=== PATIENT | female | born 1945 | race Caucasian/White ===

== ENCOUNTER 2018-03-23 15:25 | Emergency (ER) | payer MEDICARE ==
[2018-03-23] MEDS ORDERED: SODIUM CHLORIDE 0.9% 1,000 ML IV STA (16:23)
--- NOTE | 2018-03-23 16:46 | ED ---
General Adult HPI - General Chief complaint: Abdominal Pain Stated complaint: Abd pain Time Seen by Provider: 03/23/18 15:59 Source: patient, RN notes reviewed Mode of arrival: ambulatory Limitations: no limitations - History of Present Illness Initial comments: 73-year-old female presents to the emergency department for a chief complaint of abdominal pain 6 hours. Patient states she has had pain on and off for years. Patient states the pain was severe today. However, pain has resolved at the time of the emergency department visit. Patient denies vomiting but states she was nauseous earlier. Nausea resolved. Patient states she has a history of hiatal hernia but wants to make sure nothing else is wrong. Patient states she has had multiple endoscopies for this. Patient denies fevers or chills at home. Patient denies diarrhea and states her last bowel movement was today. Patient denies any cardiac history.Patient has no other complaints at this time including shortness of breath, chest pain, abdominal pain, nausea or vomiting, headache, or visual changes. - Related Data Allergies Allergy/AdvReac Type Severity Reaction Status Date / Time ciprofloxacin [From Cipro] Allergy Unknown Verified 03/23/18 15:48 Review of Systems ROS Statement: Those systems with pertinent positive or pertinent negative responses have been documented in the HPI. ROS Other: All systems not noted in ROS Statement are negative. Past Medical History Past Medical History: Thyroid Disorder Additional Past Medical History / Comment(s): IBS History of Any Multi-Drug Resistant Organisms: None Reported Past Surgical History: Hysterectomy Past Psychological History: Anxiety Smoking Status: Never smoker Past Alcohol Use History: None Reported Past Drug Use History: None Reported General Exam Limitations: no limitations General appearance: alert, in no apparent distress Head exam: Present: atraumatic, normocephalic, normal inspection Eye exam: Present: normal appearance. Absent: scleral icterus, conjunctival injection ENT exam: Present: normal exam, mucous membranes moist Neck exam: Present: normal inspection, full ROM. Absent: tenderness, meningismus, lymphadenopathy Respiratory exam: Present: normal lung sounds bilaterally. Absent: respiratory distress, wheezes, rales, rhonchi, stridor Cardiovascular Exam: Present: regular rate, normal rhythm, normal heart sounds. Absent: systolic murmur, diastolic murmur, rubs, gallop, clicks GI/Abdominal exam: Present: soft, tenderness (epigastric tenderness, LUQ tenderness, no tenderness elsewhere in the abdomen.), normal bowel sounds. Absent: distended, guarding, rebound, rigid, other (Negative McBurney point tenderness, negative obturator or psoas signs) Neurological exam: Present: alert, oriented X3, CN II-XII intact Psychiatric exam: Present: normal affect, normal mood Skin exam: Present: warm, dry, intact, normal color. Absent: rash Course Vital Signs 03/23/18 15:45 Temperature 98.2 F Pulse Rate 103 H Respiratory 18 Rate Blood Pressure 148/80 O2 Sat by Pulse 99 Oximetry EKG Findings - EKG Comments: EKG Findings:: EKG shows normal sinus rhythm ventricular rate 72 [place] interval 166 QRS duration [address] elevation or depression Medical Decision Making - Medical Decision Making 73-year-old female presents to the emergency department for epigastric and left upper and lower quadrant pain 6 hours. Patient does have a history of hiatal hernia that would like to make sure nothing else is going on. Pain resolved in the emergency Department. Patient states she has had similar episodes of pain multiple times over the past few years. Patient denies shortness of breath or chest pain. Patient is tender in the epigastric and left upper quadrant area on exam. No other abdominal tenderness. CBC CMP unremarkable. Urine will be cultured. CT of the abdomen shows hiatal hernia. Otherwise negative exam. Pain has completely resolved in the emergency department. Patient is already on medications for the hiatal hernia and sees Dr. Diggs regularly. she will follow up with Dr. Wu and primary care in 1-2 days. Patient aware to return to the emergency Department if she has any worsening symptoms. - Lab Data Result diagrams: 03/23/18 16:30 03/23/18 16:30 Lab Results 03/23/18 03/23/18 03/23/18 Range/Units 16:30 16:30 16:30 WBC 7.8 (3.8-10.6) k/uL RBC 4.47 (3.80-5.40) m/uL Hgb 13.2 (11.4-16.0) gm/dL Hct 39.6 (34.0-46.0) % MCV 88.5 (80.0-100.0) fL MCH 29.4 (25.0-35.0) pg MCHC 33.2 (31.0-37.0) g/dL RDW 13.0 (11.5-15.5) % Plt Count 308 (150-450) k/uL Neutrophils % 80 % Lymphocytes % 14 % Monocytes % 4 % Eosinophils % 1 % Basophils % 0 % Neutrophils # 6.2 (1.3-7.7) k/uL Lymphocytes # 1.1 (1.0-4.8) k/uL Monocytes # 0.3 (0-1.0) k/uL Eosinophils # 0.0 (0-0.7) k/uL Basophils # 0.0 (0-0.2) k/uL Sodium 138 (137-145) mmol/L Potassium 3.9 (3.5-5.1) mmol/L Chloride 100 (98-107) mmol/L Carbon Dioxide 27 (22-30) mmol/L Anion Gap 11 mmol/L BUN 15 (7-17) mg/dL Creatinine 0.78 (0.52-1.04) mg/dL Est GFR (CKD-EPI)AfAm 89 (>60 ml/min/1.73 sqM) Est GFR (CKD-EPI)NonAf 77 (>60 ml/min/1.73 sqM) Glucose 149 H (74-99) mg/dL Calcium 9.5 (8.4-10.2) mg/dL Total Bilirubin 0.5 (0.2-1.3) mg/dL AST 18 (14-36) U/L ALT 25 (9-52) U/L Alkaline Phosphatase 82 (38-126) U/L Total Protein 7.2 (6.3-8.2) g/dL Albumin 4.4 (3.5-5.0) g/dL Amylase 90 (30-110) U/L Lipase 77 (23-300) U/L Urine Color Yellow Urine Appearance Clear (Clear) Urine pH 5.5 (5.0-8.0) Ur Specific [place] 1.016 (1.001-1.035) Urine Protein Trace H (Negative) Urine Glucose (UA) Negative (Negative) Urine Ketones 1+ H (Negative) Urine Blood Trace H (Negative) Urine Nitrite Negative (Negative) Urine Bilirubin Negative (Negative) Urine Urobilinogen <2.0 (<2.0) mg/dL Ur Leukocyte Esterase Small H (Negative) Urine RBC 3 (0-5) /hpf Urine WBC 5 (0-5) /hpf Ur Squamous Epith Cells 1 (0-4) /hpf Urine Bacteria Rare H (None) /hpf Urine Mucus Occasional H (None) /hpf Disposition Clinical Impression: Abdominal pain, Hiatal hernia Disposition: HOME SELF-CARE Condition: Good Instructions: Hiatal Hernia (ED), Abdominal Pain (ED) Additional Instructions: Please follow up with Dr. Wu and your primary care provider in one to 2 days. Please continue to take your medications for your hernia. Return to the ED if you have any worsening symptoms. Is patient prescribed a controlled substance at d/c from ED?: No Referrals: Abdulkadir Harris MD [Primary Care Provider] - 1-2 days Time of Disposition: 18:24
[2018-03-23 16:50] LABS: Appearance,Urine Clear (Clear); Bacteria,Urine Rare /hpf; Basophils % (A) 0 %; Bilirubin,Urine Negative (Negative); Blood,Urine Trace (Negative); Color,Urine Yellow; Eosinophils % (A) 1 %; Glucose,Urine (UA) Negative (Negative); HCT 39.6 % (34.0-46.0); HGB 13.2 gm/dL (11.4-16.0); Ketones,Urine 1+ (Negative); Leukocyte Esterase,Urine Small (Negative); Lymphocytes # (A) 1.1 k/uL (1.0-4.8); Lymphocytes % (A) 14 %; MCH 29.4 pg (25.0-35.0); MCHC 33.2 g/dL (31.0-37.0); MCV 88.5 fL (80.0-100.0); Mean Platelet Volume 6.6; Monocytes # (A) 0.3 k/uL (0-1.0); Monocytes % (A) 4 %; Mucus,Urine Occasional /hpf; Neutrophils # (A) 6.2 k/uL (1.3-7.7); Neutrophils % (A) 80 %; Nitrite,Urine Negative (Negative); PH, Urine 5.5 (5.0-8.0); Platelet Count 308 k/uL (150-450); Protein,Urine Trace (Negative); RBC 4.47 m/uL (3.80-5.40); RBC,Urine 3 /hpf (0-5); Specific Gravity,Urine 1.016 (1.001-1.035); Squamous Epithelial Cell,Urine 1 /hpf (0-4); Urobilinogen,Urine <2.0 mg/dL (<2.0); WBC 7.8 k/uL (3.8-10.6); WBC,Urine 5 /hpf (0-5)
[2018-03-23 16:58] LABS: Albumin 4.4 g/dL (3.5-5.0); Calcium 9.5 mg/dL (8.4-10.2); Potassium 3.9 mmol/L (3.5-5.1); Total Bilirubin 0.5 mg/dL (0.2-1.3); Total Protein 7.2 g/dL (6.3-8.2)
--- NOTE | 2018-03-23 17:56 | CT ---
EXAMINATION TYPE: CT abdomen pelvis w con DATE OF EXAM: 03/23/2018 COMPARISON: None HISTORY: Left lower quadrant abdominal pain and nausea. CT DLP: 681 mGycm Automated exposure control for dose reduction was used. TECHNIQUE: Helical acquisition of images was performed from the lung bases through the pelvis. CONTRAST: Performed without Oral Contrast and with IV Contrast, patient injected with 100ml mL of Isovue M300. FINDINGS: There is some mild linear interstitial density at the right lung base. There is hiatal hernia. There is no pleural effusion. Liver spleen pancreas appear normal. Bile ducts are not dilated. Gallbladder appears normal. There is no adrenal mass. Kidneys show satisfactory contrast opacification. There is no hydronephrosi s. Ureters are not dilated. There is no retroperitoneal adenopathy. There is no ascites. Bladder dist ends smoothly. There is no sign of free air. Appendix is not seen. There is no sign of appendicitis. There is hysterectomy. The bony structures are intact. There is no abdominal wall hernia. IMPRESSION: HIATAL HERNIA. OTHERWISE NEGATIVE EXAM. I DO NOT SEE A CAUSE FOR LEFT LOWER QUADRANT PAIN.
[2018-03-23 19:22] VITALS: BP 162/79; PULSE 77; RESP 16; TEMP 98.4
== END 2018-03-23 19:22 | disposition home or self-care (01) ==
LOC: EC 15:25
DX: K44.9 Diaphragmatic hernia without obstruction or gangrene (principal); Z90.710 Acquired absence of both cervix and uterus; Z88.1 Allergy status to other antibiotic agents
CPT/HCPCS: 99284; 96360; 36415; 93005; 80053; 82150; 83690; 85025; 81001; 87086; 74177; Q9967

== ENCOUNTER 2018-04-12 15:43 | Emergency (ER) | payer MEDICARE ==
[2018-04-12] MEDS ORDERED: SODIUM CHLORIDE 0.9% 1,000 ML IV STA (16:02)
[2018-04-12] MEDS ORDERED: ONDANSETRON 4 MG/2 ML VIAL IVP STA (16:02)
[2018-04-12] MEDS ORDERED: SODIUM CHLORIDE 0.9% 500 ML IV STA (16:02)
[2018-04-12] MEDS ORDERED: PANTOPRAZOLE 40 MG/10 ML VIAL IVP STA (16:02)
[2018-04-12] MEDS ORDERED: MORPHINE SULFATE 2 MG/ML SYRINGE IVP STA (16:02)
[2018-04-12 16:40] LABS: Appearance,Urine Cloudy (Clear); Bacteria,Urine Rare /hpf; Bilirubin,Urine Negative (Negative); Blood,Urine Negative (Negative); Budding Yeast,Urine Few /hpf; Color,Urine Yellow; Glucose,Urine (UA) Negative (Negative); Ketones,Urine 1+ (Negative); Leukocyte Esterase,Urine Negative (Negative); Mucus,Urine Rare /hpf; Nitrite,Urine Negative (Negative); Protein,Urine Trace (Negative); RBC,Urine 4 /hpf (0-5); Specific Gravity,Urine 1.014 (1.001-1.035); Urobilinogen,Urine <2.0 mg/dL (<2.0)
[2018-04-12 16:45] LABS: Partial Thromboplastin Time 25.7 sec (22.0-30.0); Prothrombin Time 9.9 sec (9.0-12.0)
[2018-04-12 16:48] LABS: ALT 25 U/L (9-52); AST 24 U/L (14-36); Albumin 4.5 g/dL (3.5-5.0); Alkaline Phosphatase 95 U/L (38-126); Amylase 75 U/L (30-110); Anion Gap 8 mmol/L; Blood Urea Nitrogen 12 mg/dL (7-17); Calcium 9.7 mg/dL (8.4-10.2); Carbon Dioxide 27 mmol/L (22-30); Chloride 102 mmol/L (98-107); Glucose 107 mg/dL (74-99); Lipase 45 U/L (23-300); Potassium 4.2 mmol/L (3.5-5.1); Sodium 137 mmol/L (137-145); Total Bilirubin 0.6 mg/dL (0.2-1.3); Total Protein 7.7 g/dL (6.3-8.2)
--- NOTE | 2018-04-12 16:50 | XR ---
EXAMINATION TYPE: XR KUB 2 views DATE OF EXAM: 04/12/2018 COMPARISON: NONE HISTORY: Pain, left-sided, today TECHNIQUE: 2 upright radiographs FINDINGS: The visualized lower chest shows clear lungs and negative pleural spaces. There is intrathoracic posi tion of the gastric fundus. There is no pneumoperitoneum. No pneumatosis. Mildly prominent pancolonic stool volume is noted. No acute skeletal or soft tissue findings No calcifications, other than tiny bilateral hemipelvic phleboliths. IMPRESSION: No acute radiographic process.
[2018-04-12 16:53] LABS: Basophils % (A) 0 %; Eosinophils # (A) 0.1 k/uL (0-0.7); Eosinophils % (A) 1 %; HCT 41.3 % (34.0-46.0); HGB 13.3 gm/dL (11.4-16.0); Lymphocytes # (A) 1.4 k/uL (1.0-4.8); Lymphocytes % (A) 13 %; MCH 29.3 pg (25.0-35.0); MCHC 32.3 g/dL (31.0-37.0); MCV 90.5 fL (80.0-100.0); Mean Platelet Volume 6.7; Monocytes # (A) 0.3 k/uL (0-1.0); Monocytes % (A) 3 %; Neutrophils # (A) 8.4 k/uL (1.3-7.7); Neutrophils % (A) 82 %; Platelet Count 313 k/uL (150-450); RBC 4.56 m/uL (3.80-5.40); RDW 13.2 % (11.5-15.5); WBC 10.2 k/uL (3.8-10.6)
--- NOTE | 2018-04-12 18:31 | ED ---
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 - Related Data Home Medications Medication Instructions Recorded Confirmed Levothyroxine Sodium [Levoxyl] 75 mcg PO DAILY 04/12/18 04/12/18 Allergies Allergy/AdvReac Type Severity Reaction Status Date / Time ciprofloxacin [From Cipro] Allergy Unknown Verified 04/12/18 15:54 sulfamethoxazole Allergy Unknown Verified 04/12/18 15:54 [From Bactrim] trimethoprim [From Bactrim] Allergy Unknown Verified 04/12/18 15:54 Review of Systems ROS Statement: Those systems with pertinent positive or pertinent negative responses have been documented in the HPI. ROS Other: All systems not noted in ROS Statement are negative. Past Medical History Past Medical History: Thyroid Disorder Additional Past Medical History / Comment(s): IBS History of Any Multi-Drug Resistant Organisms: None Reported Past Surgical History: Hysterectomy Past Psychological History: Anxiety Smoking Status: Former smoker Past Alcohol Use History: None Reported Past Drug Use History: None Reported General Exam Limitations: no limitations Course Vital Signs 04/12/18 04/12/18 04/12/18 15:45 17:24 19:37 Temperature 98.2 F 98.0 F Pulse Rate 102 H 91 88 Respiratory 20 18 16 Rate Blood Pressure 168/99 179/81 176/82 O2 Sat by Pulse 99 98 98 Oximetry Is reassessed at 1845 CT abdomen, CBC, comp his metabolic panel, UA are all unremarkable she is complaining about upper quadrant pain it gets worse with deep breaths I plan to do a troponin, d-dimer to make sure there is no pulmonary embolism EKG was reviewed, troponin, d-dimer are all negative she be gone home on PPIs and follow with the family doctor - Reevaluation(s) Reevaluation #1: Since her troponin is unremarkable surgery d-dimer I'm EKG was done EKG is normal sinus ventricular rate is 88 [place] interval is 192 QRS duration is 64 QT/ QTc is 360/550 CK G does not reveal any ST elevation or ST depression 04/12/18 19:41 Medical Decision Making - Lab Data Result diagrams: 04/12/18 16:12 04/12/18 16:12 Lab Results 04/12/18 04/12/18 04/12/18 Range/Units 16:12 16:12 16:12 WBC 10.2 (3.8-10.6) k/uL RBC 4.56 (3.80-5.40) m/uL Hgb 13.3 (11.4-16.0) gm/dL Hct 41.3 (34.0-46.0) % MCV 90.5 (80.0-100.0) fL MCH 29.3 (25.0-35.0) pg MCHC 32.3 (31.0-37.0) g/dL RDW 13.2 (11.5-15.5) % Plt Count 313 (150-450) k/uL Neutrophils % 82 % Lymphocytes % 13 % Monocytes % 3 % Eosinophils % 1 % Basophils % 0 % Neutrophils # 8.4 H (1.3-7.7) k/uL Lymphocytes # 1.4 (1.0-4.8) k/uL Monocytes # 0.3 (0-1.0) k/uL Eosinophils # 0.1 (0-0.7) k/uL Basophils # 0.0 (0-0.2) k/uL PT (9.0-12.0) sec INR (<1.2) APTT (22.0-30.0) sec D-Dimer (<0.60) mg/L FEU Sodium 137 (137-145) mmol/L Potassium 4.2 (3.5-5.1) mmol/L Chloride 102 (98-107) mmol/L Carbon Dioxide 27 (22-30) mmol/L Anion Gap 8 mmol/L BUN 12 (7-17) mg/dL Creatinine 0.70 (0.52-1.04) mg/dL Est GFR (CKD-EPI)AfAm >90 (>60 ml/min/1.73 sqM) Est GFR (CKD-EPI)NonAf 87 (>60 ml/min/1.73 sqM) Glucose 107 H (74-99) mg/dL Plasma Lactic Acid Randal 1.1 (0.7-2.0) mmol/L Calcium 9.7 (8.4-10.2) mg/dL Total Bilirubin 0.6 (0.2-1.3) mg/dL AST 24 (14-36) U/L ALT 25 (9-52) U/L Alkaline Phosphatase 95 (38-126) U/L Troponin I (0.000-0.034) ng/mL Total Protein 7.7 (6.3-8.2) g/dL Albumin 4.5 (3.5-5.0) g/dL Amylase 75 (30-110) U/L Lipase 45 (23-300) U/L Urine Color Urine Appearance (Clear) Urine pH (5.0-8.0) Ur Specific [place] (1.001-1.035) Urine Protein (Negative) Urine Glucose (UA) (Negative) Urine Ketones (Negative) Urine Blood (Negative) Urine Nitrite (Negative) Urine Bilirubin (Negative) Urine Urobilinogen (<2.0) mg/dL Ur Leukocyte Esterase (Negative) Urine RBC (0-5) /hpf Urine Bacteria (None) /hpf Urine Mucus (None) /hpf Urine Yeast (Budding) (None) /hpf 04/12/18 04/12/18 04/12/18 Range/Units 16:12 16:12 16:12 WBC (3.8-10.6) k/uL RBC (3.80-5.40) m/uL Hgb (11.4-16.0) gm/dL Hct (34.0-46.0) % MCV (80.0-100.0) fL MCH (25.0-35.0) pg MCHC (31.0-37.0) g/dL RDW (11.5-15.5) % Plt Count (150-450) k/uL Neutrophils % % Lymphocytes % % Monocytes % % Eosinophils % % Basophils % % Neutrophils # (1.3-7.7) k/uL Lymphocytes # (1.0-4.8) k/uL Monocytes # (0-1.0) k/uL Eosinophils # (0-0.7) k/uL Basophils # (0-0.2) k/uL PT 9.9 (9.0-12.0) sec INR 1.0 (<1.2) APTT 25.7 (22.0-30.0) sec D-Dimer 0.29 (<0.60) mg/L FEU Sodium (137-145) mmol/L Potassium (3.5-5.1) mmol/L Chloride (98-107) mmol/L Carbon Dioxide (22-30) mmol/L Anion Gap mmol/L BUN (7-17) mg/dL Creatinine (0.52-1.04) mg/dL Est GFR (CKD-EPI)AfAm (>60 ml/min/1.73 sqM) Est GFR (CKD-EPI)NonAf (>60 ml/min/1.73 sqM) Glucose (74-99) mg/dL Plasma Lactic Acid Randal (0.7-2.0) mmol/L Calcium (8.4-10.2) mg/dL Total Bilirubin (0.2-1.3) mg/dL AST (14-36) U/L ALT (9-52) U/L Alkaline Phosphatase (38-126) U/L Troponin I <0.012 (0.000-0.034) ng/mL Total Protein (6.3-8.2) g/dL Albumin (3.5-5.0) g/dL Amylase (30-110) U/L Lipase (23-300) U/L Urine Color Urine Appearance (Clear) Urine pH (5.0-8.0) Ur Specific [place] (1.001-1.035) Urine Protein (Negative) Urine Glucose (UA) (Negative) Urine Ketones (Negative) Urine Blood (Negative) Urine Nitrite (Negative) Urine Bilirubin (Negative) Urine Urobilinogen (<2.0) mg/dL Ur Leukocyte Esterase (Negative) Urine RBC (0-5) /hpf Urine Bacteria (None) /hpf Urine Mucus (None) /hpf Urine Yeast (Budding) (None) /hpf 04/12/18 Range/Units 16:24 WBC (3.8-10.6) k/uL RBC (3.80-5.40) m/uL Hgb (11.4-16.0) gm/dL Hct (34.0-46.0) % MCV (80.0-100.0) fL MCH (25.0-35.0) pg MCHC (31.0-37.0) g/dL RDW (11.5-15.5) % Plt Count (150-450) k/uL Neutrophils % % Lymphocytes % % Monocytes % % Eosinophils % % Basophils % % Neutrophils # (1.3-7.7) k/uL Lymphocytes # (1.0-4.8) k/uL Monocytes # (0-1.0) k/uL Eosinophils # (0-0.7) k/uL Basophils # (0-0.2) k/uL PT (9.0-12.0) sec INR (<1.2) APTT (22.0-30.0) sec D-Dimer (<0.60) mg/L FEU Sodium (137-145) mmol/L Potassium (3.5-5.1) mmol/L Chloride (98-107) mmol/L Carbon Dioxide (22-30) mmol/L Anion Gap mmol/L BUN (7-17) mg/dL Creatinine (0.52-1.04) mg/dL Est GFR (CKD-EPI)AfAm (>60 ml/min/1.73 sqM) Est GFR (CKD-EPI)NonAf (>60 ml/min/1.73 sqM) Glucose (74-99) mg/dL Plasma Lactic Acid Randal (0.7-2.0) mmol/L Calcium (8.4-10.2) mg/dL Total Bilirubin (0.2-1.3) mg/dL AST (14-36) U/L ALT (9-52) U/L Alkaline Phosphatase (38-126) U/L Troponin I (0.000-0.034) ng/mL Total Protein (6.3-8.2) g/dL Albumin (3.5-5.0) g/dL Amylase (30-110) U/L Lipase (23-300) U/L Urine Color Yellow Urine Appearance Cloudy H (Clear) Urine pH 8.0 (5.0-8.0) Ur Specific [place] 1.014 (1.001-1.035) Urine Protein Trace H (Negative) Urine Glucose (UA) Negative (Negative) Urine Ketones 1+ H (Negative) Urine Blood Negative (Negative) Urine Nitrite Negative (Negative) Urine Bilirubin Negative (Negative) Urine Urobilinogen <2.0 (<2.0) mg/dL Ur Leukocyte Esterase Negative (Negative) Urine RBC 4 (0-5) /hpf Urine Bacteria Rare H (None) /hpf Urine Mucus Rare H (None) /hpf Urine Yeast (Budding) Few H (None) /hpf Disposition Clinical Impression: Abdominal pain Disposition: HOME SELF-CARE Condition: Good Instructions: Abdominal Pain (ED) Additional Instructions: Rice Prilosec twice a day for 7 days then change it once a day she is advised follow-up with the Dr. Wu for possible EGD Is patient prescribed a controlled substance at d/c from ED?: No Referrals: Abdulkadir Harris MD [Primary Care Provider] - 1-2 days Tessa Diggs MD [STAFF PHYSICIAN] - 1-2 days
--- NOTE | 2018-04-12 18:38 | CT ---
EXAMINATION TYPE: CT abdomen pelvis w con DATE OF EXAM: 04/12/2018 COMPARISON: 03/23/2018 HISTORY: Mid to left upper abdominal pain. CT DLP: 820 mGycm Automated exposure control for dose reduction was used. TECHNIQUE: Helical acquisition of images was performed from the lung bases through the pelvis. CONTRAST: Performed without Oral Contrast and with IV Contrast, patient injected with 100 mL of Isovue M300. FINDINGS: LUNG BASES: No significant abnormality is appreciated. LIVER/GB: No significant abnormality is appreciated. PANCREAS: No significant abnormality is seen. SPLEEN: No significant abnormality is seen. ADRENALS: No significant abnormality is seen. KIDNEYS: No significant abnormality is seen. FREE AIR: No free air is visualized. RETROPERITONEAL ADENOPATHY: None visualized REPRODUCTIVE ORGANS: No significant abnormality is seen URINARY BLADDER/URETERS: No significant abnormality is seen. Stable appearance. PELVIC ADENOPATHY: None visualized. OSSEOUS STRUCTURES: No significant abnormality is seen. BOWEL: There is intrathoracic positioning of the proximal third of the stomach. The hollow viscera o f the abdomen and pelvis are otherwise unremarkable. OTHER: Vasculature is unremarkable. IMPRESSION: NO ACUTE PROCESS; STABLE APPEARANCE WHEN COMPARED TO THE PRIOR CT 03/23/2018.
[2018-04-12 19:41] VITALS: BP 176/82; PULSE 88; RESP 16; TEMP 98
[2018-04-12] MEDS ORDERED: MAG HYDROX/AL HYDROX/SIMETH 30 ML, HYOSCYAMINE ELIXIR 10 ML, CIMETIDINE HCL 300 MG, LID... PO STA ×4 (19:55)
== END 2018-04-12 20:21 | disposition home or self-care (01) ==
LOC: EC 15:43
DX: R10.13 Epigastric pain (principal); R10.12 Left upper quadrant pain; K58.9 Irritable bowel syndrome, unspecified; Z87.891 Personal history of nicotine dependence; Z79.899 Other long term (current) drug therapy; Z88.1 Allergy status to other antibiotic agents; Z88.2 Allergy status to sulfonamides; Z87.19 Personal history of other diseases of the digestive system
CPT/HCPCS: 99284; 96374; 96375 ×2; 96361 ×4; 36415; 93005; 85379; 80053; 82150; 83605; 83690; 84484; 85025; 85610; 85730; 81001; 74018; 74177; J2405; J2270; C9113; Q9967

== ENCOUNTER 2018-06-07 20:50 | Emergency (ER) | payer MEDICARE ==
[2018-06-07] MEDS ORDERED: SODIUM CHLORIDE 0.9% 500 ML 500 ML IV STA (21:41)
[2018-06-07] MEDS ORDERED: MAG HYDROX/AL HYDROX/SIMETH 30 ML, HYOSCYAMINE ELIXIR 10 ML, CIMETIDINE HCL 300 MG, LID... PO STA ×4 (21:41)
--- NOTE | 2018-06-07 21:45 | ED ---
Abdominal Pain HPI - General Chief Complaint: Abdominal Pain Stated Complaint: Stomach pain Time Seen by Provider: 06/07/18 21:29 Source: patient Mode of arrival: ambulatory Limitations: no limitations - History of Present Illness Initial Comments: This patient is 73-year-old woman who complains of having intermittent abdominal pains. She states that they've been going on intermittently since October or November of this year. She states she gets the symptoms about every 3 or 4 days. She indicates the epigastric area and states that there sharp in nature. Today's episode came on and this morning, after she had eaten. She states that the pain is severe and she has not found any worsening or relieving factors. When the pain comes on she feels like she can't eat anything. She also has some associated nausea. She has been seen here twice previously about the same pains and states that they couldn't find the cause. MD Complaint: abdominal pain Onset/Timin -: month(s) Location: epigastric Radiation: none Migration to: no migration Severity: severe Quality: sharp Consistency: intermittent Improves With: nothing Worsens With: eating Associated Symptoms: nausea - Related Data Home Medications Medication Instructions Recorded Confirmed Acetaminophen [Tylenol] 500 mg PO Q4-6H PRN 06/07/18 06/07/18 Cholecalciferol [Vitamin D3] 1,000 unit PO DAILY 06/07/18 06/07/18 Fluticasone Nasal [place] [Flonase 1 spray EA NOSTRIL DAILY PRN 06/07/18 06/07/18 Nasal [place]] Levothyroxine Sodium [Levoxyl] 75 mcg PO MOTUWETHFRSA 06/07/18 06/07/18 Loratadine [Claritin] 10 mg PO DAILY 06/07/18 06/07/18 Naproxen Sodium [Aleve] 220 mg PO Q12HR PRN 06/07/18 06/07/18 Omeprazole [PriLOSEC] 20 mg PO DAILY 06/07/18 06/07/18 Vitamin C/Biotin [Hair, Skin and 1 tab PO DAILY 06/07/18 06/07/18 Nails] Vitavision 1 tab PO DAILY 06/07/18 06/07/18 Allergies Allergy/AdvReac Type Severity Reaction Status Date / Time ciprofloxacin [From Cipro] Allergy Unknown Verified 06/07/18 21:49 sulfamethoxazole Allergy Unknown Verified 06/07/18 21:49 [From Bactrim] trimethoprim [From Bactrim] Allergy Unknown Verified 06/07/18 21:49 Review of Systems ROS Statement: Those systems with pertinent positive or pertinent negative responses have been documented in the HPI. ROS Other: All systems not noted in ROS Statement are negative. Constitutional: Denies: fever, chills Respiratory: Denies: cough, dyspnea Cardiovascular: Denies: chest pain, palpitations, edema Gastrointestinal: Reports: as per HPI, abdominal pain, nausea, constipation. Denies: vomiting, diarrhea, melena, hematochezia Genitourinary: Denies: dysuria, hematuria Musculoskeletal: Denies: back pain Skin: Denies: rash Neurological: Denies: headache, weakness, numbness Past Medical History Past Medical History: Thyroid Disorder Additional Past Medical History / Comment(s): IBS History of Any Multi-Drug Resistant Organisms: None Reported Past Surgical History: Hysterectomy Past Psychological History: Anxiety Smoking Status: Former smoker Past Alcohol Use History: None Reported Past Drug Use History: None Reported General Exam Limitations: no limitations General appearance: alert, in no apparent distress Head exam: Present: atraumatic, normocephalic Eye exam: Present: normal appearance. Absent: scleral icterus, conjunctival injection ENT exam: Present: normal oropharynx Neck exam: Present: normal inspection Respiratory exam: Present: normal lung sounds bilaterally. Absent: respiratory distress, wheezes, rales, rhonchi, stridor Cardiovascular Exam: Present: regular rate, normal rhythm, normal heart sounds. Absent: systolic murmur, diastolic murmur, rubs, gallop GI/Abdominal exam: Present: soft, tenderness (There is mild epigastric tenderness without rebound or guarding), normal bowel sounds. Absent: distended , guarding, rebound, rigid, organomegaly, mass, pulsatile mass, hernia Extremities exam: Present: normal inspection, normal capillary refill. Absent: pedal edema, calf tenderness Back exam: Present: normal inspection. Absent: CVA tenderness (R), CVA tenderness (L) Neurological exam: Present: alert Skin exam: Present: warm, dry, intact, normal color. Absent: rash Course Vital Signs 06/07/18 20:59 Temperature 98.5 F Pulse Rate 104 H Respiratory 16 Rate Blood Pressure 163/99 O2 Sat by Pulse 99 Oximetry Medical Decision Making - Lab Data Result diagrams: 06/07/18 21:50 06/07/18 21:50 Lab Results 06/07/18 06/07/18 06/07/18 Range/Units 21:50 21:50 21:50 WBC 10.2 (3.8-10.6) k/uL RBC 4.68 (3.80-5.40) m/uL Hgb 14.4 (11.4-16.0) gm/dL Hct 42.6 (34.0-46.0) % MCV 91.2 (80.0-100.0) fL MCH 30.9 (25.0-35.0) pg MCHC 33.9 (31.0-37.0) g/dL RDW 13.0 (11.5-15.5) % Plt Count 301 (150-450) k/uL Neutrophils % 77 % Lymphocytes % 16 % Monocytes % 4 % Eosinophils % 1 % Basophils % 0 % Neutrophils # 7.8 H (1.3-7.7) k/uL Lymphocytes # 1.7 (1.0-4.8) k/uL Monocytes # 0.4 (0-1.0) k/uL Eosinophils # 0.1 (0-0.7) k/uL Basophils # 0.1 (0-0.2) k/uL Sodium 137 (137-145) mmol/L Potassium 3.9 (3.5-5.1) mmol/L Chloride 97 L (98-107) mmol/L Carbon Dioxide 29 (22-30) mmol/L Anion Gap 11 mmol/L BUN 17 (7-17) mg/dL Creatinine 0.74 (0.52-1.04) mg/dL Est GFR (CKD-EPI)AfAm >90 (>60 ml/min/1.73 sqM) Est GFR (CKD-EPI)NonAf 82 (>60 ml/min/1.73 sqM) Glucose 104 H (74-99) mg/dL Plasma Lactic Acid [place] 1.5 (0.7-2.0) mmol/L Calcium 10.0 (8.4-10.2) mg/dL Total Bilirubin 0.6 (0.2-1.3) mg/dL AST 23 (14-36) U/L ALT 25 (9-52) U/L Alkaline Phosphatase 92 (38-126) U/L Troponin I (0.000-0.034) ng/mL Total Protein 8.2 (6.3-8.2) g/dL Albumin 4.6 (3.5-5.0) g/dL Amylase 82 (30-110) U/L Lipase 69 (23-300) U/L Urine Color Urine Appearance (Clear) Urine pH (5.0-8.0) Ur Specific [place] (1.001-1.035) Urine Protein (Negative) Urine Glucose (UA) (Negative) Urine Ketones (Negative) Urine Blood (Negative) Urine Nitrite (Negative) Urine Bilirubin (Negative) Urine Urobilinogen (<2.0) mg/dL Ur Leukocyte Esterase (Negative) Urine RBC (0-5) /hpf Urine WBC (0-5) /hpf Ur Squamous Epith Cells (0-4) /hpf Urine Mucus (None) /hpf 06/07/18 06/07/18 Range/Units 21:50 23:21 WBC (3.8-10.6) k/uL RBC (3.80-5.40) m/uL Hgb (11.4-16.0) gm/dL Hct (34.0-46.0) % MCV (80.0-100.0) fL MCH (25.0-35.0) pg MCHC (31.0-37.0) g/dL RDW (11.5-15.5) % Plt Count (150-450) k/uL Neutrophils % % Lymphocytes % % Monocytes % % Eosinophils % % Basophils % % Neutrophils # (1.3-7.7) k/uL Lymphocytes # (1.0-4.8) k/uL Monocytes # (0-1.0) k/uL Eosinophils # (0-0.7) k/uL Basophils # (0-0.2) k/uL Sodium (137-145) mmol/L Potassium (3.5-5.1) mmol/L Chloride (98-107) mmol/L Carbon Dioxide (22-30) mmol/L Anion Gap mmol/L BUN (7-17) mg/dL Creatinine (0.52-1.04) mg/dL Est GFR (CKD-EPI)AfAm (>60 ml/min/1.73 sqM) Est GFR (CKD-EPI)NonAf (>60 ml/min/1.73 sqM) Glucose (74-99) mg/dL Plasma Lactic Acid Randal (0.7-2.0) mmol/L Calcium (8.4-10.2) mg/dL Total Bilirubin (0.2-1.3) mg/dL AST (14-36) U/L ALT (9-52) U/L Alkaline Phosphatase (38-126) U/L Troponin I <0.012 (0.000-0.034) ng/mL Total Protein (6.3-8.2) g/dL Albumin (3.5-5.0) g/dL Amylase (30-110) U/L Lipase (23-300) U/L Urine Color Light Yellow Urine Appearance Cloudy H (Clear) Urine pH 7.0 (5.0-8.0) Ur Specific [place] 1.011 (1.001-1.035) Urine Protein Negative (Negative) Urine Glucose (UA) Negative (Negative) Urine Ketones 2+ H (Negative) Urine Blood Negative (Negative) Urine Nitrite Negative (Negative) Urine Bilirubin Negative (Negative) Urine Urobilinogen <2.0 (<2.0) mg/dL Ur Leukocyte Esterase Small H (Negative) Urine RBC 3 (0-5) /hpf Urine WBC 1 (0-5) /hpf Ur Squamous Epith Cells <1 (0-4) /hpf Urine Mucus Rare H (None) /hpf Disposition Clinical Impression: Abdominal pain, Constipation Disposition: HOME SELF-CARE Condition: Good Instructions: Abdominal Pain (ED), Constipation (DC) Is patient prescribed a controlled substance at d/c from ED?: No Referrals: Abdulkadir Harris MD [Primary Care Provider] - 1-2 days
[2018-06-07 22:26] LABS: Basophils # (A) 0.1 k/uL (0-0.2); Basophils % (A) 0 %; Eosinophils # (A) 0.1 k/uL (0-0.7); Eosinophils % (A) 1 %; HCT 42.6 % (34.0-46.0); HGB 14.4 gm/dL (11.4-16.0); Lymphocytes # (A) 1.7 k/uL (1.0-4.8); Lymphocytes % (A) 16 %; MCH 30.9 pg (25.0-35.0); MCHC 33.9 g/dL (31.0-37.0); MCV 91.2 fL (80.0-100.0); Mean Platelet Volume 6.8; Monocytes # (A) 0.4 k/uL (0-1.0); Monocytes % (A) 4 %; Neutrophils # (A) 7.8 k/uL (1.3-7.7); Neutrophils % (A) 77 %; Platelet Count 301 k/uL (150-450); RBC 4.68 m/uL (3.80-5.40); WBC 10.2 k/uL (3.8-10.6)
[2018-06-07 22:43] LABS: ALT 25 U/L (9-52); AST 23 U/L (14-36); Albumin 4.6 g/dL (3.5-5.0); Alkaline Phosphatase 92 U/L (38-126); Amylase 82 U/L (30-110); Anion Gap 11 mmol/L; Blood Urea Nitrogen 17 mg/dL (7-17); Carbon Dioxide 29 mmol/L (22-30); Chloride 97 mmol/L (98-107); Glucose 104 mg/dL (74-99); Lipase 69 U/L (23-300); Potassium 3.9 mmol/L (3.5-5.1); Sodium 137 mmol/L (137-145); Total Bilirubin 0.6 mg/dL (0.2-1.3); Total Protein 8.2 g/dL (6.3-8.2)
[2018-06-07] MEDS ORDERED: DICYCLOMINE 20 MG TAB PO STA (22:50)
[2018-06-07] MEDS ORDERED: ONDANSETRON 4 MG/2 ML VIAL IVP STA (22:51)
--- NOTE | 2018-06-07 22:56 | XR ---
EXAMINATION TYPE: XR KUB DATE OF EXAM: 06/07/2018 COMPARISON: 04/12/2018 HISTORY: Abdominal pain TECHNIQUE: 2 views upright FINDINGS: There is some retained fecal material in the large bowel. There is no sign of intestinal ob struction. There are no pathologic calcifications over the kidneys. Lung bases are clear. There is la rge hiatal hernia. There is no sign of free air. IMPRESSION: Constipation. Large hiatal hernia. No change.
[2018-06-07 23:47] LABS: Appearance,Urine Cloudy (Clear); Bilirubin,Urine Negative (Negative); Blood,Urine Negative (Negative); Color,Urine Light Yellow; Glucose,Urine (UA) Negative (Negative); Ketones,Urine 2+ (Negative); Leukocyte Esterase,Urine Small (Negative); Mucus,Urine Rare /hpf; Nitrite,Urine Negative (Negative); Protein,Urine Negative (Negative); RBC,Urine 3 /hpf (0-5); Specific Gravity,Urine 1.011 (1.001-1.035); Squamous Epithelial Cell,Urine <1 /hpf (0-4); Urobilinogen,Urine <2.0 mg/dL (<2.0); WBC,Urine 1 /hpf (0-5)
[2018-06-08] MEDS ORDERED: PEG 3350-NA SULF,BICARB,CL/KCL 4,000 ML BOTTLE PO ONE (00:27)
[2018-06-08 00:28] VITALS: BP 171/94; PULSE 105; RESP 19
[2018-06-08] MEDS ORDERED: POLYETHYLENE GLYCOL LYTES SOLN 4,000 ML SOLN.RECON PO ONE (00:42)
[2018-06-08 00:52] VITALS: TEMP 97.5
== END 2018-06-08 00:52 | disposition home or self-care (01) ==
LOC: EC 20:50
DX: K59.00 Constipation, unspecified (principal); R11.0 Nausea; E07.9 Disorder of thyroid, unspecified; K58.9 Irritable bowel syndrome, unspecified; Z90.710 Acquired absence of both cervix and uterus; Z87.891 Personal history of nicotine dependence; Z79.899 Other long term (current) drug therapy; Z88.1 Allergy status to other antibiotic agents; Z88.2 Allergy status to sulfonamides
CPT/HCPCS: 36415; 93005; 80053; 82150; 83605; 83690; 84484; 85025; 81001; 74018; 99284; 96374; J2405

== ENCOUNTER 2018-07-10 18:19 | Emergency (ER) | payer MEDICARE ==
[2018-07-10 18:24] VITALS: TEMP 98.2
--- NOTE | 2018-07-10 20:49 | ED ---
General Adult HPI - General Chief complaint: Abdominal Pain Stated complaint: epigastric pain Source: patient Mode of arrival: ambulatory Limitations: no limitations - History of Present Illness Initial comments: Dictation was produced using [employer] dictation software. please excuse any grammatical, word or spelling errors. Chief Complaint: 73-year-old female with past medical history of irritable bowel syndrome, thyroid disease presents with left sided abdominal pain. History of Present Illness: Patient states she's been having problems with this for approximately 2 days. She states pain is constant and localized to her left upper quadrant and left flank area. Patient has a history of irritable bowel syndrome. She called her audio/visual operator was consulted to take milk of magnesia. Patient did report having bowel movements. Shortly after she began having a insidious onset of left-sided crampy abdominal pain. Denies any blood in her stool. Patient then proceeded to make herself throw up. She does have some pain with by mouth. Patient does have a audio/visual operator. She did have upper endoscopy approximately a couple weeks ago and was found to be normal. No history of diverticulitis. Patient has had multiple CT scans in the past without any acute processes. The ROS documented in this emergency department record has been reviewed and confirmed by me. Those systems with pertinent positive or negative responses have been documented in the HPI. All other systems are other negative and/or noncontributory. - Related Data Home Medications Medication Instructions Recorded Confirmed Acetaminophen [Tylenol] 500 mg PO Q4-6H PRN 06/07/18 06/07/18 Cholecalciferol [Vitamin D3] 1,000 unit PO DAILY 06/07/18 06/07/18 Fluticasone Nasal [place] [Flonase 1 spray EA NOSTRIL DAILY PRN 06/07/18 06/07/18 Nasal [place]] Levothyroxine Sodium [Levoxyl] 75 mcg PO MOTUWETHFRSA 06/07/18 06/07/18 Loratadine [Claritin] 10 mg PO DAILY 06/07/18 06/07/18 Naproxen Sodium [Aleve] 220 mg PO Q12HR PRN 06/07/18 06/07/18 Omeprazole [PriLOSEC] 20 mg PO DAILY 06/07/18 06/07/18 Vitamin C/Biotin [Hair, Skin and 1 tab PO DAILY 06/07/18 06/07/18 Nails] Vitavision 1 tab PO DAILY 06/07/18 06/07/18 Allergies Allergy/AdvReac Type Severity Reaction Status Date / Time ciprofloxacin [From Cipro] Allergy Unknown Verified 07/10/18 18:23 sulfamethoxazole Allergy Unknown Verified 07/10/18 18:23 [From Bactrim] trimethoprim [From Bactrim] Allergy Unknown Verified 07/10/18 18:23 Review of Systems ROS Statement: Those systems with pertinent positive or pertinent negative responses have been documented in the HPI. ROS Other: All systems not noted in ROS Statement are negative. Past Medical History Past Medical History: Thyroid Disorder Additional Past Medical History / Comment(s): IBS History of Any Multi-Drug Resistant Organisms: None Reported Past Surgical History: Hysterectomy Past Psychological History: Anxiety Smoking Status: Former smoker Past Alcohol Use History: None Reported Past Drug Use History: None Reported General Exam - General Exam Comments Initial Comments: PHYSICAL EXAM: General Impression: Alert and oriented x3, not in acute distress HEENT: Normocephalic atraumatic, extra-ocular movements intact, pupils equal and reactive to light bilaterally, mucous membranes moist. Cardiovascular: Heart regular rate and rhythm, S1&S2 audible, no murmurs, rubs or gallops Chest: Lungs clear to auscultation bilaterally, no rhonchi, no wheeze, no rales Abdomen: Left upper quadrant tenderness to palpation Musculoskeletal: Pulses present and equal in all extremities, no peripheral edema Motor: Power 5/5 bilaterally, no focal deficits noted Neurological: CN II-XII grossly intact, no focal motor or sensory deficits noted Skin: Intact with no visualized rashes Psych: Normal affect and mood Limitations: no limitations Course Vital Signs 07/10/18 07/10/18 07/10/18 18:21 21:15 23:00 Temperature 98.2 F Pulse Rate 114 H 89 80 Respiratory 18 20 18 Rate Blood Pressure 169/93 148/86 136/88 O2 Sat by Pulse 98 99 99 Oximetry 07/10/18 23:14 Temperature Pulse Rate Respiratory 19 Rate Blood Pressure O2 Sat by Pulse Oximetry Medical Decision Making - Medical Decision Making ED course: 73-year-old female with chief complaint of crampy abdominal pain localized to the left abdomen. She has history of irritable bowel syndrome. All signs upon arrival shows heart rate of 114, worse vital signs within normal limits. Physical examination is grossly benign except for some mild tenderness to palpation of the abdomen.Laboratory evaluation obtained on unremarkable. Lipase negative. Urinalysis unremarkable. KUB is negative. Patient appears well no recurrent episodes of abdominal pain. Patient just started Bentyl. She is advised to continue taking that. Still to follow-up with her audio/visual operator upon discharge. Patient understandable agreeable to plan. EKG interpretation: Ventricular rate 88, normal sinus rhythm, VT interval 166, QRS 72, QTc 447. No VT prolongation, no QTC prolongation, no ST or T-wave changes noted. Overall, this EKG is unremarkable - Lab Data Result diagrams: 07/10/18 21:20 07/10/18 21:20 Lab Results 07/10/18 07/10/18 07/10/18 Range/Units 21:20 21:20 21:20 WBC 10.4 (3.8-10.6) k/uL RBC 4.64 (3.80-5.40) m/uL Hgb 14.2 (11.4-16.0) gm/dL Hct 42.0 (34.0-46.0) % MCV 90.5 (80.0-100.0) fL MCH 30.7 (25.0-35.0) pg MCHC 33.9 (31.0-37.0) g/dL RDW 13.0 (11.5-15.5) % Plt Count 312 (150-450) k/uL Neutrophils % 79 % Lymphocytes % 14 % Monocytes % 4 % Eosinophils % 2 % Basophils % 0 % Neutrophils # 8.2 H (1.3-7.7) k/uL Lymphocytes # 1.5 (1.0-4.8) k/uL Monocytes # 0.5 (0-1.0) k/uL Eosinophils # 0.2 (0-0.7) k/uL Basophils # 0.0 (0-0.2) k/uL Sodium 139 (137-145) mmol/L Potassium 3.9 (3.5-5.1) mmol/L Chloride 102 (98-107) mmol/L Carbon Dioxide 27 (22-30) mmol/L Anion Gap 10 mmol/L BUN 11 (7-17) mg/dL Creatinine 0.82 (0.52-1.04) mg/dL Est GFR (CKD-EPI)AfAm 83 (>60 ml/min/1.73 sqM) Est GFR (CKD-EPI)NonAf 72 (>60 ml/min/1.73 sqM) Glucose 110 H (74-99) mg/dL Calcium 9.9 (8.4-10.2) mg/dL Total Bilirubin 0.7 (0.2-1.3) mg/dL AST 24 (14-36) U/L ALT 25 (9-52) U/L Alkaline Phosphatase 94 (38-126) U/L Troponin I (0.000-0.034) ng/mL Total Protein 7.8 (6.3-8.2) g/dL Albumin 4.4 (3.5-5.0) g/dL Lipase 68 (23-300) U/L Urine Color Yellow Urine Appearance Clear (Clear) Urine pH 7.5 (5.0-8.0) Ur Specific [place] 1.010 (1.001-1.035) Urine Protein Negative (Negative) Urine Glucose (UA) Negative (Negative) Urine Ketones Trace H (Negative) Urine Blood Negative (Negative) Urine Nitrite Negative (Negative) Urine Bilirubin Negative (Negative) Urine Urobilinogen <2.0 (<2.0) mg/dL Ur Leukocyte Esterase Trace H (Negative) Urine RBC 3 (0-5) /hpf Urine WBC 1 (0-5) /hpf Ur Squamous Epith Cells <1 (0-4) /hpf Amorphous Sediment Rare H (None) /hpf Urine Mucus Few H (None) /hpf 07/10/18 Range/Units 21:20 WBC (3.8-10.6) k/uL RBC (3.80-5.40) m/uL Hgb (11.4-16.0) gm/dL Hct (34.0-46.0) % MCV (80.0-100.0) fL MCH (25.0-35.0) pg MCHC (31.0-37.0) g/dL RDW (11.5-15.5) % Plt Count (150-450) k/uL Neutrophils % % Lymphocytes % % Monocytes % % Eosinophils % % Basophils % % Neutrophils # (1.3-7.7) k/uL Lymphocytes # (1.0-4.8) k/uL Monocytes # (0-1.0) k/uL Eosinophils # (0-0.7) k/uL Basophils # (0-0.2) k/uL Sodium (137-145) mmol/L Potassium (3.5-5.1) mmol/L Chloride (98-107) mmol/L Carbon Dioxide (22-30) mmol/L Anion Gap mmol/L BUN (7-17) mg/dL Creatinine (0.52-1.04) mg/dL Est GFR (CKD-EPI)AfAm (>60 ml/min/1.73 sqM) Est GFR (CKD-EPI)NonAf (>60 ml/min/1.73 sqM) Glucose (74-99) mg/dL Calcium (8.4-10.2) mg/dL Total Bilirubin (0.2-1.3) mg/dL AST (14-36) U/L ALT (9-52) U/L Alkaline Phosphatase (38-126) U/L Troponin I <0.012 (0.000-0.034) ng/mL Total Protein (6.3-8.2) g/dL Albumin (3.5-5.0) g/dL Lipase (23-300) U/L Urine Color Urine Appearance (Clear) Urine pH (5.0-8.0) Ur Specific [place] (1.001-1.035) Urine Protein (Negative) Urine Glucose (UA) (Negative) Urine Ketones (Negative) Urine Blood (Negative) Urine Nitrite (Negative) Urine Bilirubin (Negative) Urine Urobilinogen (<2.0) mg/dL Ur Leukocyte Esterase (Negative) Urine RBC (0-5) /hpf Urine WBC (0-5) /hpf Ur Squamous Epith Cells (0-4) /hpf Amorphous Sediment (None) /hpf Urine Mucus (None) /hpf Disposition Clinical Impression: Abdominal pain Disposition: HOME SELF-CARE Instructions: Abdominal Pain (ED) Is patient prescribed a controlled substance at d/c from ED?: No Referrals: Abdulkadir Harris MD [Primary Care Provider] - 1-2 days Time of Disposition: 23:36
[2018-07-10 21:46] LABS: Basophils % (A) 0 %; Eosinophils # (A) 0.2 k/uL (0-0.7); Eosinophils % (A) 2 %; HGB 14.2 gm/dL (11.4-16.0); Lymphocytes # (A) 1.5 k/uL (1.0-4.8); Lymphocytes % (A) 14 %; MCH 30.7 pg (25.0-35.0); MCHC 33.9 g/dL (31.0-37.0); MCV 90.5 fL (80.0-100.0); Mean Platelet Volume 6.5; Monocytes # (A) 0.5 k/uL (0-1.0); Monocytes % (A) 4 %; Neutrophils # (A) 8.2 k/uL (1.3-7.7); Neutrophils % (A) 79 %; Platelet Count 312 k/uL (150-450); RBC 4.64 m/uL (3.80-5.40); WBC 10.4 k/uL (3.8-10.6)
[2018-07-10 21:58] LABS: Albumin 4.4 g/dL (3.5-5.0); Calcium 9.9 mg/dL (8.4-10.2); Potassium 3.9 mmol/L (3.5-5.1); Total Bilirubin 0.7 mg/dL (0.2-1.3); Total Protein 7.8 g/dL (6.3-8.2)
[2018-07-10 22:04] LABS: Amorphous Sediment,Urine Rare /hpf; Appearance,Urine Clear (Clear); Bilirubin,Urine Negative (Negative); Blood,Urine Negative (Negative); Color,Urine Yellow; Glucose,Urine (UA) Negative (Negative); Ketones,Urine Trace (Negative); Leukocyte Esterase,Urine Trace (Negative); Mucus,Urine Few /hpf; Nitrite,Urine Negative (Negative); PH, Urine 7.5 (5.0-8.0); Protein,Urine Negative (Negative); RBC,Urine 3 /hpf (0-5); Squamous Epithelial Cell,Urine <1 /hpf (0-4); Urobilinogen,Urine <2.0 mg/dL (<2.0); WBC,Urine 1 /hpf (0-5)
--- NOTE | 2018-07-10 22:04 | XR ---
EXAMINATION TYPE: XR KUB DATE OF EXAM: 07/10/2018 COMPARISON: 06/07/2018 HISTORY: Abdominal pain TECHNIQUE: 2 views upright FINDINGS: There is no sign of intestinal obstruction or pneumoperitoneum. Fecal pattern is normal. There are no pathologic calcifications over the kidneys. There are chest leads. Bony structures are intact. Impression Nonacute abdomen. No change.
[2018-07-10 23:14] VITALS: BP 136/88; PULSE 80
[2018-07-10 23:15] VITALS: RESP 19
== END 2018-07-10 23:41 | disposition home or self-care (01) ==
LOC: EC 18:19
DX: R10.12 Left upper quadrant pain (principal); R10.13 Epigastric pain; E07.9 Disorder of thyroid, unspecified; Z87.891 Personal history of nicotine dependence; Z87.19 Personal history of other diseases of the digestive system; Z90.710 Acquired absence of both cervix and uterus; Z79.899 Other long term (current) drug therapy; Z88.1 Allergy status to other antibiotic agents; Z88.2 Allergy status to sulfonamides
CPT/HCPCS: 36415; 74018; 80053; 81001; 83690; 84484; 85025; 93005; 99284

== ENCOUNTER → 2019-09-11 | Outpatient (CLI) | payer MEDICARE ==
--- NOTE | 2019-09-12 09:49 | MM ---
Reason for exam: screening (asymptomatic). Last mammogram was performed 7 years ago. History: Patient is postmenopausal. Benign cyst aspiration of the left breast, October 17, 2000. Cyst aspiration of the right breast. Physical Findings: A clinical breast exam by your physician is recommended on an annual basis and results should be correlated with mammographic findings. MG Screening Mammo w CAD Bilateral CC and MLO view(s) were taken. Prior study comparison: September 24, 2012, mammogram. August 08, 2012, mammogram. July 18, 2012, mammogram. October 11, 2002, bilateral screening mammogram. The breast tissue is heterogeneously dense. This may lower the sensitivity of mammography. Benign calcifications. No significant changes when compared with prior studies. ASSESSMENT: Benign, BI-RAD 2 RECOMMENDATION: Routine screening mammogram of both breasts in 1 year.
== END | disposition home or self-care (01) ==
LOC: RADMAMWWP 12:50
PROVIDERS: ATTEND Family Medicine
DX: Z12.31 Encounter for screening mammogram for malignant neoplasm of breast (principal)
CPT/HCPCS: 77067

== ENCOUNTER → 2021-05-20 | Outpatient (CLI) | payer MEDICARE ==
--- NOTE | 2021-05-20 11:18 | FL ---
ESOPHOGRAM. HISTORY: Dysphagia Esophagram was performed per the air contrast technique. The patient swallowed barium and effervesce nt crystals without difficulty or delay. Esophageal peristalsis and motility appear to be within normal limits. There is no evidence for filling defect, mass or diverticulum. There is a large paraesophageal hiatal hernia noted with approximately two thirds of the stomach residing within the thorax. IMPRESSION: Large paraesophageal hiatal hernia.
== END | disposition home or self-care (01) ==
LOC: RADUSWWP 09:53
PROVIDERS: ATTEND Surgery Plastic and Reconstructive Surgery
DX: K44.9 Diaphragmatic hernia without obstruction or gangrene (principal)
CPT/HCPCS: 74220; 93005

== ENCOUNTER 2021-05-30 15:02 | Inpatient (IN) | payer MEDICARE ==
--- NOTE | 2021-05-30 16:55 | XR ---
EXAMINATION TYPE: XR KUB DATE OF EXAM: 05/30/2021 COMPARISON: 07/10/2018 HISTORY: Abdominal pain TECHNIQUE: Single view FINDINGS: Bowel gas pattern is normal. There is no sign of intestinal obstruction or pneumoperitoneum . There is contrast in the left colon. There are probably some sigmoid diverticula. There is no evide nce of a mass. Lung bases are clear. There are no calcifications over the kidneys. IMPRESSION: Nonacute abdomen.
[2021-05-30 17:48] LABS: Basophils % (A) 0 %; Eosinophils # (A) 0.1 k/uL (0-0.7); Eosinophils % (A) 0 %; HCT 44.4 % (34.0-46.0); HGB 14.9 gm/dL (11.4-16.0); Lymphocytes # (A) 1.2 k/uL (1.0-4.8); Lymphocytes % (A) 5 %; MCH 31.4 pg (25.0-35.0); MCHC 33.5 g/dL (31.0-37.0); MCV 93.7 fL (80.0-100.0); Mean Platelet Volume 6.6; Monocytes # (A) 0.9 k/uL (0-1.0); Monocytes % (A) 4 %; Neutrophils % (A) 91 %; Platelet Count 411 k/uL (150-450); RBC 4.74 m/uL (3.80-5.40); RDW 13.4 % (11.5-15.5); WBC 26.3 k/uL (3.8-10.6)
[2021-05-30 17:52] LABS: Appearance,Urine Clear (Clear); Bilirubin,Urine Negative (Negative); Blood,Urine Negative (Negative); Color,Urine Yellow; Glucose,Urine (UA) Negative (Negative); Ketones,Urine Negative (Negative); Leukocyte Esterase,Urine Negative (Negative); Nitrite,Urine Negative (Negative); Protein,Urine Negative (Negative); Specific Gravity,Urine 1.014 (1.001-1.035); Urobilinogen,Urine <2.0 mg/dL (<2.0)
[2021-05-30 17:59] LABS: ALT 9 U/L (4-34); AST 21 U/L (14-36); African American GFR (CKD) >90 (>60 ml/min/1.73 sqM); Albumin 4.2 g/dL (3.5-5.0); Alkaline Phosphatase 147 U/L (38-126); Amylase 71 U/L (30-110); Anion Gap 11 mmol/L; Blood Urea Nitrogen 13 mg/dL (7-17); Calcium 9.7 mg/dL (8.4-10.2); Carbon Dioxide 27 mmol/L (22-30); Chloride 96 mmol/L (98-107); Glucose 132 mg/dL (74-99); Lipase 48 U/L (23-300); Non-African American GFR(CKD) 88 (>60 ml/min/1.73 sqM); Potassium 4.1 mmol/L (3.5-5.1); Sodium 134 mmol/L (137-145); Total Bilirubin 0.6 mg/dL (0.2-1.3); Total Protein 7.7 g/dL (6.3-8.2)
--- NOTE | 2021-05-30 20:29 | CT ---
EXAMINATION TYPE: CT abdomen pelvis w con DATE OF EXAM: 05/30/2021 COMPARISON: 04/12/2018 HISTORY: Abdominal pain CT DLP: mGycm Automated exposure control for dose reduction was used. CONTRAST: IV contrast was Isovue 100 mL. Images obtained from the diaphragm to the floor the pelvis with IV contrast. There is some contrast m aterial in the large bowel. Lung bases show subsegmental atelectasis left lower lobe. There is moderate-sized hiatal hernia with intrathoracic stomach. Liver spleen pancreas gallbladder appear intact. Bile ducts are not dilated. There is no adrenal mass . Kidneys show satisfactory contrast opacification. There is no hydronephrosis. Ureters are not dilat ed. There is no evidence of a bowel obstruction. There are multiple sigmoid diverticula containing co ntrast material. The bladder distends smoothly. There is no inguinal hernia. There is no free fluid i n the pelvis. There is some fat stranding involving the MID sigmoid colon. There is 2 cm pocket of air on the right lateral aspect of the mid sigmoid colon that is probably diverticular abscess. There is mild wall th ickening of the sigmoid colon. The lumbar vertebra have normal alignment. There is no compression fracture. Bony pelvis appears inta ct. The hip joints are intact. IMPRESSION: Sigmoid diverticulosis with evidence of a peridiverticular abscess on the right lateral wall of the m id sigmoid colon. This appears new compared to old exam. Hiatal hernia and intrathoracic stomach.
[2021-05-30] MEDS ORDERED: ACETAMINOPHEN TAB 325 MG TAB PO PRN (20:48)
[2021-05-30] MEDS ORDERED: NALOXONE 0.4 MG/ML 1 ML VIAL IV PRN (20:48)
--- NOTE | 2021-05-30 20:48 | ED ---
Abdominal Pain HPI - General Chief Complaint: Abdominal Pain Stated Complaint: Abdominal Pain Time Seen by Provider: 05/30/21 16:42 Source: patient Mode of arrival: ambulatory Limitations: no limitations - History of Present Illness Initial Comments: 76-year-old female past medical history of hiatal hernia presents emergency room with reported diffuse abdominal pain. She states that she had a modified barium swallow test performed on Tuesday under the direction of Dr. Dixon for her hiatal hernia. States that after the procedure she had 3 days worth of constipation. She did take some magnesium citrate and did have a bowel movement yesterday however feels as if she is still distended. She has had worsening generalized abdominal pain with nausea. Denies vomiting. Due to her persistent symptoms she presents for further evaluation. She denies any fevers or chills. Denies urinary complaints include dysuria, hematuria or difficult voiding. Denies abnormal vaginal bleeding or discharge. No rectal bleeding. Admits IBS and hysterectomy history. No other alleviating, precipitating or modifying factors - Related Data Home Medications Medication Instructions Recorded Confirmed Naproxen Sodium [Aleve] 220 mg PO DAILY PRN 06/07/18 05/30/21 Vitamin C/Biotin [Hair, Skin and 1 tab PO DAILY 06/07/18 05/30/21 Nails] Vitavision 1 tab PO DAILY 06/07/18 05/30/21 Calcium Carbonate [Calcium] 600 mg PO DAILY 05/30/21 05/30/21 Cholecalciferol [Vitamin D3 (25 25 mcg PO DAILY 05/30/21 05/30/21 Mcg = 1000 Iu)] Esomeprazole Magnesium [NexIUM] 40 mg PO DAILY 05/30/21 05/30/21 Levothyroxine Sodium [Levoxyl] 88 mcg PO DAILY 05/30/21 05/30/21 Magnesium 250 mg PO DAILY 05/30/21 05/30/21 Metoprolol Tartrate [Lopressor] 25 mg PO DAILY 05/30/21 05/30/21 Allergies Allergy/AdvReac Type Severity Reaction Status Date / Time ciprofloxacin [From Cipro] Allergy Unknown Verified 05/30/21 21:10 sulfamethoxazole Allergy Unknown Verified 05/30/21 21:10 [From Bactrim] trimethoprim [From Bactrim] Allergy Unknown Verified 05/30/21 21:10 Review of Systems ROS Statement: Those systems with pertinent positive or pertinent negative responses have been documented in the HPI. ROS Other: All systems not noted in ROS Statement are negative. Past Medical History Past Medical History: Thyroid Disorder Additional Past Medical History / Comment(s): IBS History of Any Multi-Drug Resistant Organisms: None Reported Past Surgical History: Hysterectomy Past Psychological History: Anxiety Smoking Status: Never smoker Past Alcohol Use History: None Reported Past Drug Use History: None Reported General Exam Limitations: no limitations Course Vital Signs 05/30/21 05/30/21 16:04 18:00 Temperature 99.2 F Pulse Rate 125 H 98 Respiratory 18 16 Rate Blood Pressure 157/79 141/77 O2 Sat by Pulse 96 97 Oximetry Medical Decision Making - Medical Decision Making Upon arrival patient was placed in room 28. A thorough history and physical exam is performed. IV is established and laboratory studies are conducted. She was sent for a KUB which does demonstrate no acute findings however there is retained barium contrast in the bowel. Laboratory studies are reviewed bouncer white blood cell count of 26.3. Because of the elevated white blood cell count patient is sent back for a CT of her abdomen and pelvis which demonstrates sigmoid diverticula with diverticulitis and evidence of peridiverticular abscess on the right lateral wall the mid sigmoid colon. I did discuss his results with Dr. Simpson who agreed to be on consult for the patient. Called and spoke with Dr. Martinez who will admit the patient. Blood cultures are obtained and the patient is started on Zosyn. Patient agreed to this treatment plan and is currently awaiting a bed on the floor - Lab Data Result diagrams: 05/30/21 17:22 05/30/21 17:22 Lab Results 05/30/21 05/30/21 05/30/21 Range/Units 17:22 17:22 17:22 WBC 26.3 H (3.8-10.6) k/uL RBC 4.74 (3.80-5.40) m/uL Hgb 14.9 (11.4-16.0) gm/dL Hct 44.4 (34.0-46.0) % MCV 93.7 (80.0-100.0) fL MCH 31.4 (25.0-35.0) pg MCHC 33.5 (31.0-37.0) g/dL RDW 13.4 (11.5-15.5) % Plt Count 411 (150-450) k/uL MPV 6.6 Neutrophils % 91 % Lymphocytes % 5 % Monocytes % 4 % Eosinophils % 0 % Basophils % 0 % Neutrophils # 24.0 H (1.3-7.7) k/uL Lymphocytes # 1.2 (1.0-4.8) k/uL Monocytes # 0.9 (0-1.0) k/uL Eosinophils # 0.1 (0-0.7) k/uL Basophils # 0.0 (0-0.2) k/uL Sodium 134 L (137-145) mmol/L Potassium 4.1 (3.5-5.1) mmol/L Chloride 96 L (98-107) mmol/L Carbon Dioxide 27 (22-30) mmol/L Anion Gap 11 mmol/L BUN 13 (7-17) mg/dL Creatinine 0.65 (0.52-1.04) mg/dL Est GFR (CKD-EPI)AfAm >90 (>60 ml/min/1.73 sqM) Est GFR (CKD-EPI)NonAf 88 (>60 ml/min/1.73 sqM) Glucose 132 H (74-99) mg/dL Plasma Lactic Acid Randal (0.7-2.0) mmol/L Calcium 9.7 (8.4-10.2) mg/dL Total Bilirubin 0.6 (0.2-1.3) mg/dL AST 21 (14-36) U/L ALT 9 (4-34) U/L Alkaline Phosphatase 147 H (38-126) U/L Total Protein 7.7 (6.3-8.2) g/dL Albumin 4.2 (3.5-5.0) g/dL Amylase 71 (30-110) U/L Lipase 48 (23-300) U/L Urine Color Yellow Urine Appearance Clear (Clear) Urine pH 8.0 (5.0-8.0) Ur Specific Shirley 1.014 (1.001-1.035) Urine Protein Negative (Negative) Urine Glucose (UA) Negative (Negative) Urine Ketones Negative (Negative) Urine Blood Negative (Negative) Urine Nitrite Negative (Negative) Urine Bilirubin Negative (Negative) Urine Urobilinogen <2.0 (<2.0) mg/dL Ur Leukocyte Esterase Negative (Negative) 10/09/21 Range/Units 18:02 WBC (3.8-10.6) k/uL RBC (3.80-5.40) m/uL Hgb (11.4-16.0) gm/dL Hct (34.0-46.0) % MCV (80.0-100.0) fL MCH (25.0-35.0) pg MCHC (31.0-37.0) g/dL RDW (11.5-15.5) % Plt Count (150-450) k/uL MPV Neutrophils % % Lymphocytes % % Monocytes % % Eosinophils % % Basophils % % Neutrophils # (1.3-7.7) k/uL Lymphocytes # (1.0-4.8) k/uL Monocytes # (0-1.0) k/uL Eosinophils # (0-0.7) k/uL Basophils # (0-0.2) k/uL Sodium (137-145) mmol/L Potassium (3.5-5.1) mmol/L Chloride (98-107) mmol/L Carbon Dioxide (22-30) mmol/L Anion Gap mmol/L BUN (7-17) mg/dL Creatinine (0.52-1.04) mg/dL Est GFR (CKD-EPI)AfAm (>60 ml/min/1.73 sqM) Est GFR (CKD-EPI)NonAf (>60 ml/min/1.73 sqM) Glucose (74-99) mg/dL Plasma Lactic Acid Randal 1.0 (0.7-2.0) mmol/L Calcium (8.4-10.2) mg/dL Total Bilirubin (0.2-1.3) mg/dL AST (14-36) U/L ALT (4-34) U/L Alkaline Phosphatase (38-126) U/L Total Protein (6.3-8.2) g/dL Albumin (3.5-5.0) g/dL Amylase (30-110) U/L Lipase (23-300) U/L Urine Color Urine Appearance (Clear) Urine pH (5.0-8.0) Ur Specific Shirley (1.001-1.035) Urine Protein (Negative) Urine Glucose (UA) (Negative) Urine Ketones (Negative) Urine Blood (Negative) Urine Nitrite (Negative) Urine Bilirubin (Negative) Urine Urobilinogen (<2.0) mg/dL Ur Leukocyte Esterase (Negative) Disposition Clinical Impression: Diverticulitis of intestine with abscess Disposition: ADMITTED IP TO THIS HOSP Condition: Stable Is patient prescribed a controlled substance at d/c from ED?: No Referrals: Abdulkadir Harris MD [Primary Care Provider] - 1-2 days Decision to Admit Reason: Admit from EC Decision Date: 05/30/21 Decision Time: 20:48
[2021-05-30] MEDS: SODIUM CHLORIDE 0.9% 1,000 ML IV SCH (22:50)
--- NOTE | 2021-05-31 02:34 | P.HPIM ---
History of Present Illness H&P Date: 05/30/21 Chief Complaint: abd pain 76 year old female with IBS-c lower abd pain and LLQ pain started since tuesday after her barium swallow imaging. pain progressed and today was severe colicky pain 8-10/10 in severity wiht no vomiting, nausea , diarrhea, or GI bleeding. she reports some chills, but no fever. this has never happened to her before. she tried stool softners with no benefit, as she is constipated. otherwise denies any URI symptoms, urinary changes, or any sick contacts. in the ED, imaging shoed acute diverticulitis with abscess formation in the segmoid leukocytosis but no fever Review of Systems Pertinent positives as noted in HPI. All other systems were reviewed and are negative Past Medical History Past Medical History: Thyroid Disorder Additional Past Medical History / Comment(s): IBS History of Any Multi-Drug Resistant Organisms: None Reported Past Surgical History: Hysterectomy Past Psychological History: Anxiety Smoking Status: Never smoker Past Alcohol Use History: None Reported Past Drug Use History: None Reported - Past Family History Family Family Medical History: No Reported History Medications and Allergies Home Medications Medication Instructions Recorded Confirmed Type Naproxen Sodium [Aleve] 220 mg PO DAILY PRN 06/07/18 05/30/21 History Vitamin C/Biotin [Hair, Skin and 1 tab PO DAILY 06/07/18 05/30/21 History Nails] Vitavision 1 tab PO DAILY 06/07/18 05/30/21 History Calcium Carbonate [Calcium] 600 mg PO DAILY 05/30/21 05/30/21 History Cholecalciferol [Vitamin D3 (25 25 mcg PO DAILY 05/30/21 05/30/21 History Mcg = 1000 Iu)] Esomeprazole Magnesium [NexIUM] 40 mg PO DAILY 05/30/21 05/30/21 History Levothyroxine Sodium [Levoxyl] 88 mcg PO DAILY 05/30/21 05/30/21 History Magnesium 250 mg PO DAILY 05/30/21 05/30/21 History Metoprolol Tartrate [Lopressor] 25 mg PO DAILY 05/30/21 05/30/21 History Allergies Allergy/AdvReac Type Severity Reaction Status Date / Time ciprofloxacin [From Cipro] Allergy Unknown Verified 05/30/21 21:10 sulfamethoxazole Allergy Unknown Verified 10/09/21 21:10 [From Bactrim] trimethoprim [From Bactrim] Allergy Unknown Verified 05/30/21 21:10 Physical Exam Vitals: Vital Signs Temp Pulse Resp BP Pulse Ox 05/30/21 18:00 98 16 141/77 97 05/30/21 16:04 99.2 F 125 H 18 157/79 96 Intake and Output 05/30/21 05/30/21 05/30/21 06:59 14:59 22:59 Other: Voiding Method Toilet Weight 47.174 kg Constitutional: No acute distress, conversant, pleasant Eyes: Anicteric sclerae, moist conjunctiva, Pupils equal round reactive to light ENMT: NC/AT Oropharynx clear, no erythema, or exudates Neck: Supple, FROM, no masses, or JVD No carotid bruits No thyromegaly Lungs: Clear to auscultation Clear to percussion Normal respiratory effort, no accessory muscle use Cardiovascular: Heart regular in rate and rhythm, No murmurs, gallops, or rubs No peripheral edema Abdominal: Soft tenderness to deep palpation over the lower abd and LLQ, voluntary guarding, no rebound or rigidity Abdomen moving with respiration Normoactive bowel sounds No hepatomegaly, No splenomegaly No palpable mass No abdominal wall hernia noted Skin: Normal temperature, tone, texture, turgor No induration No subcutaneous nodules No rash, lesions No ulcers Extremities: No digital cyanosis No clubbing Pedal pulses intact and symmetrical Radial pulses intact and symmetrical No calf tenderness Psychiatric: Alert and oriented to person, place and time Appropriate affect fair judgement Neuro Muscles Strength 5/5 in all 4 extremities Sensation to light touch grossly present throughout Cranial nerves II-XII grossly intact No focal sensory deficits Lymphatics: no palpable cervical or supraclavicular , or inguinal lymph nodes Results CBC & Chem 7: 05/30/21 17:22 05/30/21 17:22 Labs: Abnormal Lab Results - Last 24 Hours (Table) 05/30/21 05/30/21 Range/Units 17:22 17:22 WBC 26.3 H (3.8-10.6) k/uL Neutrophils # 24.0 H (1.3-7.7) k/uL Sodium 134 L (137-145) mmol/L Chloride 96 L (98-107) mmol/L Glucose 132 H (74-99) mg/dL Alkaline Phosphatase 147 H (38-126) U/L Assessment and Plan Assessment: sepsis with acute diverticulitis and abscess formation ffollow up cultures Surgery consultation NPO pain control with opioids tylenol for fever IVF hydration with normal saline empiric antibiotics with zosyn anticipated length of stay > 2 midnights anticipated discharge home DVT PPX mechanical
[2021-05-31] MEDS: LEVOTHYROXINE 88 MCG TAB PO SCH (05:30)
[2021-05-31] MEDS: CHOLECALCIFEROL 25 MCG (1000 IU) TABLET PO SCH (08:35)
[2021-05-31] MEDS: MAGNESIUM OXIDE 400 MG TAB PO SCH (08:35)
[2021-05-31] MEDS: PIPERACILLIN-TAZOBACTAM 3.375 GM in SODIUM CHLORIDE 0.9% 100 ML IVPB SCH ×4 (08:35→17:30)
[2021-05-31] MEDS: METOPROLOL TARTRATE 25 MG TAB PO SCH (08:35)
[2021-05-31] MEDS: PANTOPRAZOLE 40 MG TABLET PO SCH (08:35)
[2021-05-31] MEDS: NON FORMULARY DRUG (Calcium Carbonate [Calcium] 600 MG Tablet) PO SCH (08:36)
[2021-05-31] MEDS ORDERED: NON FORMULARY DRUG (Vitamin C/Biotin [Hair, Skin And Nails Chew] 1 EACH Tab.Chew) PO SCH (09:00)
[2021-05-31] MEDS ORDERED: [UNRECOGNIZED DRUG - OTHER] PO SCH (09:00)
[2021-05-31 10:16] LABS: Basophils % (A) 0 %; Eosinophils # (A) 0.1 k/uL (0-0.7); Eosinophils % (A) 0 %; HCT 40.9 % (34.0-46.0); HGB 13.1 gm/dL (11.4-16.0); Lymphocytes # (A) 1.1 k/uL (1.0-4.8); Lymphocytes % (A) 7 %; MCH 30.9 pg (25.0-35.0); MCHC 32.1 g/dL (31.0-37.0); MCV 96.1 fL (80.0-100.0); Mean Platelet Volume 6.6; Monocytes # (A) 0.6 k/uL (0-1.0); Monocytes % (A) 4 %; Neutrophils # (A) 14.5 k/uL (1.3-7.7); Neutrophils % (A) 88 %; Platelet Count 392 k/uL (150-450); RBC 4.26 m/uL (3.80-5.40); RDW 13.6 % (11.5-15.5); WBC 16.4 k/uL (3.8-10.6)
[2021-05-31 10:25] LABS: African American GFR (CKD) >90 (>60 ml/min/1.73 sqM); Anion Gap 11 mmol/L; Blood Urea Nitrogen 9 mg/dL (7-17); Calcium 9.2 mg/dL (8.4-10.2); Carbon Dioxide 27 mmol/L (22-30); Chloride 99 mmol/L (98-107); Glucose 133 mg/dL (74-99); Non-African American GFR(CKD) 86 (>60 ml/min/1.73 sqM); Potassium 3.7 mmol/L (3.5-5.1); Sodium 137 mmol/L (137-145)
--- NOTE | 2021-05-31 11:49 | P.GSCN ---
History of Present Illness Consult date: 05/31/21 Reason for Consult: Diverticulitis History of present illness: 76-year-old female came to the hospital after experiencing lower abdominal pain 2 days ago. Pain increasing in severity. In the ER patient found to have an elevated white blood cell count of 26.3. T-max 99.2. Patient on CAT scan has inflammatory changes in the pelvis with a possible right-sided pelvic abscess measuring 2 cm. Patient feels much better. She was actually hoping to go home today. White blood cell count improved at 16,000. Patient had recent upper GI with barium. Patient's CAT scan shows retained barium throughout the colon. Patient took milk of magnesia after she was told by her pain clinic doctor that she had retained barium. Patient is hungry now. No nausea or vomiting. She has been having bowel movements. Patient has IBSc. Last colonoscopy 2-[address] Wu. No history of diverticulitis in the past. Review of Systems The patient denies any acute changes in vision or hearing, no dysphagia or odynophagia, no chest pain or shortness of breath, no dysuria or hematuria, no headache, no runny nose, no rectal bleeding or melena, no unexplained weight loss Past Medical History Past Medical History: Thyroid Disorder Additional Past Medical History / Comment(s): IBS, iron deficient anemia History of Any Multi-Drug Resistant Organisms: None Reported Past Surgical History: Hysterectomy Past Psychological History: Anxiety Smoking Status: Never smoker Past Alcohol Use History: None Reported Past Drug Use History: None Reported - Past Family History Family Family Medical History: No Reported History Medications and Allergies Home Medications Medication Instructions Recorded Confirmed Type Naproxen Sodium [Aleve] 220 mg PO DAILY PRN 06/07/18 05/30/21 History Vitamin C/Biotin [Hair, Skin and 1 tab PO DAILY 06/07/18 05/30/21 History Nails] Vitavision 1 tab PO DAILY 06/07/18 05/30/21 History Calcium Carbonate [Calcium] 600 mg PO DAILY 05/30/21 05/30/21 History Cholecalciferol [Vitamin D3 (25 25 mcg PO DAILY 05/30/21 05/30/21 History Mcg = 1000 Iu)] Esomeprazole Magnesium [NexIUM] 40 mg PO DAILY 05/30/21 05/30/21 History Levothyroxine Sodium [Levoxyl] 88 mcg PO DAILY 05/30/21 05/30/21 History Magnesium 250 mg PO DAILY 05/30/21 05/30/21 History Metoprolol Tartrate [Lopressor] 25 mg PO DAILY 05/30/21 05/30/21 History Allergies Allergy/AdvReac Type Severity Reaction Status Date / Time ciprofloxacin [From Cipro] Allergy Unknown Verified 05/30/21 21:10 sulfamethoxazole Allergy Unknown Verified 05/30/21 21:10 [From Bactrim] trimethoprim [From Bactrim] Allergy Unknown Verified 05/30/21 21:10 Surgical - Exam Vital Signs Temp Pulse Resp BP Pulse Ox 99.2 F 125 H 18 157/79 96 05/30/21 16:04 05/30/21 16:04 05/30/21 16:04 05/30/21 16:04 05/30/21 16:04 Physical exam: General: Well-developed, well-nourished HEENT: Normocephalic, sclerae nonicteric Abdomen: Nontender, nondistended Extremities: No edema Neuro: Alert and oriented Results - Labs 05/31/21 09:14 05/31/21 09:14 Abnormal Lab Results - Last 24 Hours (Table) 05/30/21 05/30/21 05/31/21 Range/Units 17:22 17:22 09:14 WBC 26.3 H 16.4 H (3.8-10.6) k/uL Neutrophils # 24.0 H 14.5 H (1.3-7.7) k/uL Sodium 134 L (137-145) mmol/L Chloride 96 L (98-107) mmol/L Glucose 132 H (74-99) mg/dL Alkaline Phosphatase 147 H (38-126) U/L 05/31/21 Range/Units 09:14 WBC (3.8-10.6) k/uL Neutrophils # (1.3-7.7) k/uL Sodium (137-145) mmol/L Chloride (98-107) mmol/L Glucose 133 H (74-99) mg/dL Alkaline Phosphatase (38-126) U/L Diabetes panel 05/30/21 05/31/21 Range/Units 17:22 09:14 Sodium 134 L 137 (137-145) mmol/L Potassium 4.1 3.7 (3.5-5.1) mmol/L Chloride 96 L 99 (98-107) mmol/L Carbon Dioxide 27 27 (22-30) mmol/L BUN 13 9 (7-17) mg/dL Creatinine 0.65 0.69 (0.52-1.04) mg/dL Glucose 132 H 133 H (74-99) mg/dL Calcium 9.7 9.2 (8.4-10.2) mg/dL AST 21 (14-36) U/L ALT 9 (4-34) U/L Alkaline Phosphatase 147 H (38-126) U/L Total Protein 7.7 (6.3-8.2) g/dL Albumin 4.2 (3.5-5.0) g/dL Calcium panel 05/30/21 05/31/21 Range/Units 17:22 09:14 Calcium 9.7 9.2 (8.4-10.2) mg/dL Albumin 4.2 (3.5-5.0) g/dL Pituitary panel 05/30/21 05/31/21 Range/Units 17:22 09:14 Sodium 134 L 137 (137-145) mmol/L Potassium 4.1 3.7 (3.5-5.1) mmol/L Chloride 96 L 99 (98-107) mmol/L Carbon Dioxide 27 27 (22-30) mmol/L BUN 13 9 (7-17) mg/dL Creatinine 0.65 0.69 (0.52-1.04) mg/dL Glucose 132 H 133 H (74-99) mg/dL Calcium 9.7 9.2 (8.4-10.2) mg/dL Adrenal panel 05/30/21 05/31/21 Range/Units 17:22 09:14 Sodium 134 L 137 (137-145) mmol/L Potassium 4.1 3.7 (3.5-5.1) mmol/L Chloride 96 L 99 (98-107) mmol/L Carbon Dioxide 27 27 (22-30) mmol/L BUN 13 9 (7-17) mg/dL Creatinine 0.65 0.69 (0.52-1.04) mg/dL Glucose 132 H 133 H (74-99) mg/dL Calcium 9.7 9.2 (8.4-10.2) mg/dL Total Bilirubin 0.6 (0.2-1.3) mg/dL AST 21 (14-36) U/L ALT 9 (4-34) U/L Alkaline Phosphatase 147 H (38-126) U/L Total Protein 7.7 (6.3-8.2) g/dL Albumin 4.2 (3.5-5.0) g/dL Assessment and Plan (1) Diverticulitis of intestine with abscess Narrative/Plan: 76-year-old female with diverticulitis and abscess formation. Continue antibiotics. Advance diet to full liquids. Possible discharge tomorrow on oral antibiotics. Current Visit: Yes Status: Acute Code(s): K57.80 - DVTRCLI OF INTEST, PART UNSP, W PERF AND ABSCESS W/O BLEED SNOMED Code(s): 696137312
--- NOTE | 2021-05-31 14:05 | P.PN ---
Subjective Progress Note Date: 05/31/21 No new complaints. Patient is tolerating a full liquid diet. Afebrile. Pain is improved. Objective - Vital Signs Vital signs: Vital Signs Temp 98.4 F 05/31/21 07:43 Pulse 85 05/31/21 07:43 Resp 16 05/31/21 07:43 BP 134/58 05/31/21 07:43 Pulse Ox 97 05/31/21 07:43 Intake & Output 05/30/21 05/31/21 05/31/21 18:59 06:59 18:59 Intake Total 300 Balance 300 Weight 47.174 kg 47.174 kg Intake: Intake, IV Titration 300 Amount Sodium Chloride 0.9% 1, 300 000 ml @ 75 mls/hr IV . [id number] [facility] Rx#:[id number] Other: Voiding Method Toilet # Voids 2 - Exam Gen: awake, alert HEENT: normocephalic, atraumatic, good hearing acuity, moist mucous membranes Resp: good air exchange, breathing comfortably with no accessory muscle use CVS: good distal perfusion x 4, GI: soft, NTTP, ND : no SPT, no CVAT, chan catheter not present MSK: no pitting edema, no clubbing Neuro: non-focal, moving all extremities Psych: cooperative, euthymic mood - Labs CBC & Chem 7: 05/31/21 09:14 05/31/21 09:14 Labs: Abnormal Lab Results - Last 24 Hours (Table) 05/30/21 05/30/21 05/31/21 Range/Units 17:22 17:22 09:14 WBC 26.3 H 16.4 H (3.8-10.6) k/uL Neutrophils # 24.0 H 14.5 H (1.3-7.7) k/uL Sodium 134 L (137-145) mmol/L Chloride 96 L (98-107) mmol/L Glucose 132 H (74-99) mg/dL Alkaline Phosphatase 147 H (38-126) U/L 05/31/21 Range/Units 09:14 WBC (3.8-10.6) k/uL Neutrophils # (1.3-7.7) k/uL Sodium (137-145) mmol/L Chloride (98-107) mmol/L Glucose 133 H (74-99) mg/dL Alkaline Phosphatase (38-126) U/L Assessment and Plan Assessment: sepsis with acute diverticulitis and abscess formation ffollow up cultures Surgery consultation Liquid diet pain control with opioids tylenol for fever IVF hydration with normal saline empiric antibiotics with zosyn anticipated length of stay > 2 midnights anticipated discharge home DVT PPX mechanical
[2021-05-31] MEDS: SODIUM CHLORIDE 0.9% 1,000 ML IV SCH (14:07)
[2021-06-01] MEDS: SODIUM CHLORIDE 0.9% 1,000 ML IV SCH (01:00)
[2021-06-01] MEDS: PIPERACILLIN-TAZOBACTAM 3.375 GM in SODIUM CHLORIDE 0.9% 100 ML IVPB SCH ×2 (01:12→08:04)
[2021-06-01] MEDS: PANTOPRAZOLE 40 MG TABLET PO SCH (06:21)
[2021-06-01] MEDS: LEVOTHYROXINE 88 MCG TAB PO SCH (06:21)
[2021-06-01 06:28] VITALS: BP 134/63; PULSE 76; RESP 18; TEMP 97.5
[2021-06-01] MEDS: NON FORMULARY DRUG (Calcium Carbonate [Calcium] 600 MG Tablet) PO SCH (07:53)
[2021-06-01] MEDS: CHOLECALCIFEROL 25 MCG (1000 IU) TABLET PO SCH (08:04)
[2021-06-01] MEDS: METOPROLOL TARTRATE 25 MG TAB PO SCH (08:04)
[2021-06-01] MEDS: MAGNESIUM OXIDE 400 MG TAB PO SCH (08:04)
[2021-06-01 08:07] LABS: Basophils % (A) 0 %; Eosinophils # (A) 0.1 k/uL (0-0.7); Eosinophils % (A) 1 %; HCT 36.8 % (34.0-46.0); HGB 12.7 gm/dL (11.4-16.0); Lymphocytes # (A) 1.4 k/uL (1.0-4.8); Lymphocytes % (A) 13 %; MCH 32.3 pg (25.0-35.0); MCHC 34.5 g/dL (31.0-37.0); MCV 93.7 fL (80.0-100.0); Mean Platelet Volume 6.9; Monocytes # (A) 0.5 k/uL (0-1.0); Monocytes % (A) 4 %; Neutrophils # (A) 8.1 k/uL (1.3-7.7); Neutrophils % (A) 80 %; Platelet Count 402 k/uL (150-450); RBC 3.93 m/uL (3.80-5.40); WBC 10.1 k/uL (3.8-10.6)
--- NOTE | 2021-06-01 12:34 | P.PN ---
Subjective Progress Note Date: 06/01/21 CHIEF COMPLAINT: Abdominal pain HISTORY OF PRESENT ILLNESS: Patient is followed by surgical service for d iverticulitis with abscess. She reports improvement in her pain. She does have some mild tenderness with palpation in left lower quadrant. She is tolerating full liquid diet. She's afebrile. White count has normalized at 10.1. She denies any nausea vomiting. She is having flatus. PHYSICAL EXAM: VITAL SIGNS: Reviewed GENERAL: Well-developed in no acute distress. HEENT: No sclera icterus. Extraocular movements grossly intact. Moist buccal mucosa. Head is atraumatic, normocephalic. Hears conversational speech. No nasal drainage. NECK: Supple without lymphadenopathy. CHEST: Non-labored respirations and equal bilateral excursions. CARDIOVASCULAR: Palpable 2+ radial pulses. ABDOMEN: Soft. Nondistended. Minimal tenderness to palpation left lower quadrant MUSCULOSKELETAL: No clubbing or cyanosis. NEUROLOGIC: No focal or lateralizing signs. Cranial nerves II through XII gr ossly intact. PSYCH: Appropriate affect. Alert and oriented to person, place and time. SKIN: Well perfused. Good skin turgor. ASSESSMENT: 1. Acute sigmoid diverticulitis with abscess 2. Hiatal hernia PLAN: -Continue antibiotics -Anticipate discharge later today on oral antibiotics -Recommend colonoscopy in 6-8 weeks outpatient once acute infection has cleared up -No surgical intervention planned -Continue medical management Physician Reading Professor note has been reviewed by physician. Signing provider agrees with the documented findings, assessment, and plan of care. Objective - Vital Signs Vital signs: Vital Signs Temp 97.5 F L 06/01/21 06:25 Pulse 76 06/01/21 06:25 Resp 18 06/01/21 06:25 BP 134/63 06/01/21 06:25 Pulse Ox 98 06/01/21 06:25 Intake & Output 05/31/21 06/01/21 06/01/21 18:59 06:59 18:59 Output Total 1 Balance -1 Weight 47.174 kg Output: Urine 1 Other: # Voids 3 3 - Labs CBC & Chem 7: 06/01/21 07:06 05/31/21 09:14 Labs: Abnormal Lab Results - Last 24 Hours (Table) 06/01/21 Range/Units 07:06 Neutrophils # 8.1 H (1.3-7.7) k/uL Microbiology - Last 24 Hours (Table) 05/30/21 21:35 Blood Culture - Preliminary Blood No Growth after 24 hours
--- NOTE | 2021-06-01 15:27 | P.DS ---
Providers Date of admission: 05/30/21 20:48 Expected date of discharge: 06/01/21 Attending physician: Serene Arellano MD Consults: 05/30/21 20:49 Consult Physician Urgent Consulting Provider: Gabriela Nagel Consult Reason/Comments: acute diverticulitis with abscess Do you want consulting provider notified?: Yes, Notify in am Primary care physician: [facility] Course: sepsis with acute diverticulitis and abscess formation Pt admitted with zosyn. Surgery consulted, recommended conservative management with PO abx and f/u in 6 weeks for colonoscopy. Pt tolerating diet and passing flatus, small stools. Switched to cipro/flagyl for total 10 day course. D/c'd with PCP and surgery f/u. Assessment: Gen: awake, alert HEENT: normocephalic, atraumatic, good hearing acuity, moist mucous membranes Resp: good air exchange, breathing comfortably with no accessory muscle use CVS: good distal perfusion x 4, GI: soft, NTTP, ND : no SPT, no CVAT, chan catheter not present MSK: no pitting edema, no clubbing Neuro: non-focal, moving all extremities Psych: cooperative, euthymic moodn Patient Condition at Discharge: Good Plan - Discharge Summary New Discharge Prescriptions: New Ciprofloxacin HCl 500 mg PO BID 8 Days #16 tab metroNIDAZOLE [Flagyl] 500 mg PO TID 8 Days #24 tab Continue Vitamin C/Biotin [Hair, Skin and Nails Chew] 1 tab PO DAILY Vitavision 1 tab PO DAILY Naproxen Sodium [Aleve] 220 mg PO DAILY PRN PRN Reason: Pain Cholecalciferol [Vitamin D3 (25 Mcg = 1000 Iu)] 25 mcg PO DAILY Metoprolol Tartrate [Lopressor] 25 mg PO DAILY Levothyroxine Sodium [Levoxyl] 88 mcg PO DAILY Magnesium 250 mg PO DAILY Esomeprazole Magnesium [NexIUM] 40 mg PO DAILY Calcium Carbonate [Calcium] 600 mg PO DAILY Discharge Medication List Naproxen Sodium [Aleve] 220 mg PO DAILY PRN 06/07/18 [History] Vitamin C/Biotin [Hair, Skin and Nails Chew] 1 tab PO DAILY 06/07/18 [History] Vitavision 1 tab PO DAILY 06/07/18 [History] Calcium Carbonate [Calcium] 600 mg PO DAILY 05/30/21 [History] Cholecalciferol [Vitamin D3 (25 Mcg = 1000 Iu)] 25 mcg PO DAILY 05/30/21 [History] Esomeprazole Magnesium [NexIUM] 40 mg PO DAILY 05/30/21 [History] Levothyroxine Sodium [Levoxyl] 88 mcg PO DAILY 05/30/21 [History] Magnesium 250 mg PO DAILY 05/30/21 [History] Metoprolol Tartrate [Lopressor] 25 mg PO DAILY 05/30/21 [History] Ciprofloxacin HCl 500 mg PO BID 8 Days #16 tab 06/01/21 [Rx] metroNIDAZOLE [Flagyl] 500 mg PO TID 8 Days #24 tab 06/01/21 [Rx] Follow up Appointment(s)/Referral(s): Abdulkadir Harris MD [Primary Care Provider] - 1-2 days Gabriela Nagel MD [STAFF PHYSICIAN] - 06/09/21 2:00 pm Patient Instructions/Handouts: Diverticulitis (DC) Discharge Disposition: HOME SELF-CARE
[2021-06-02] MEDS ORDERED: CALCIUM CARBONATE 500 MG CHEWABLE PO SCH (09:00)
== END 2021-06-01 14:01 | disposition home or self-care (01) | DRG 872 ==
LOC: EC 15:02 → 5NMEDONC 20:48 → 1SOBS 05-31 00:59
PROVIDERS: ADMIT Internal Medicine; ATTEND Internal Medicine
DX: A41.9 Sepsis, unspecified organism (principal); K57.20 Diverticulitis of large intestine with perforation and abscess without bleeding; K44.9 Diaphragmatic hernia without obstruction or gangrene; K58.1 Irritable bowel syndrome with constipation; E07.9 Disorder of thyroid, unspecified; D50.9 Iron deficiency anemia, unspecified; F41.9 Anxiety disorder, unspecified; Z20.822 Contact with and (suspected) exposure to COVID-19; Z79.890 Hormone replacement therapy; Z79.899 Other long term (current) drug therapy; Z90.710 Acquired absence of both cervix and uterus; Z88.1 Allergy status to other antibiotic agents; Z88.8 Allergy status to other drugs, medicaments and biological substances; Z88.2 Allergy status to sulfonamides
CPT/HCPCS: 36415; 74018; 74177; 80048; 80053; 81003; 82150; 83605; 83690; 85025; 87040; 87635; 99285

== ENCOUNTER → 2021-07-20 | Outpatient (CLI) | payer MEDICARE ==
[2021-07-20 09:30] VITALS: BP 129/60; PULSE 83; RESP 18; TEMP 97.5
--- NOTE | 2021-07-20 10:15 | P.PAINCN ---
History of Present Illness - Reason for Consult Consult date: 07/20/21 - History of Present Illness This is 76 years old female with a chronic history of severe low back pain, she is diagnosed with lumbar spondylosis with lumbar facet arthropathy and lumbar degenerative disc disease, she had diagnostic medial branch block lumbar area done at [facility] and she gets more than 90% relief after each block, she was referred to [facility] to have RFA of the medial branch lumbar area, he denies any motor or sensory deficit she denies any fever or night sweats which she denies any change in the bowel movement or urination, he reported that the pain in the low back area is constant and increased with any activity interfere with her quality of life, she tried physical therapy without any significant relief of her pain and she tried medication management without any benefit, patient gets more than 90% improvement of her low back pain after the diagnostic medial branch block lumbar area x2 Past Medical History Past Medical History: Thyroid Disorder Additional Past Medical History / Comment(s): IBS. Hiatal Hernia History of Any Multi-Drug Resistant Organisms: None Reported Past Surgical History: Hysterectomy Past Anesthesia/Blood Transfusion Reactions: No Reported Reaction Past Psychological History: Anxiety Smoking Status: Former smoker Past Alcohol Use History: None Reported Past Drug Use History: None Reported - Past Family History Family Family Medical History: No Reported History Medications and Allergies Home Medications Medication Instructions Recorded Confirmed Type Naproxen Sodium [Aleve] 220 mg PO DAILY PRN 06/07/18 07/20/21 History Vitamin C/Biotin [Hair, Skin and 1 tab PO DAILY 06/07/18 07/20/21 History Nails Chew] Vitavision 1 tab PO DAILY 06/07/18 07/20/21 History Esomeprazole Magnesium [NexIUM] 40 mg PO DAILY 05/30/21 07/20/21 History Levothyroxine Sodium [Levoxyl] 88 mcg PO DAILY 05/30/21 07/20/21 History Magnesium 250 mg PO DAILY 05/30/21 07/20/21 History Metoprolol Tartrate [Lopressor] 25 mg PO DAILY 05/30/21 07/20/21 History Allergies Allergy/AdvReac Type Severity Reaction Status Date / Time ciprofloxacin [From Cipro] Allergy Unknown Verified 05/30/21 21:10 sulfamethoxazole Allergy Unknown Verified 05/30/21 21:10 [From Bactrim] trimethoprim [From Bactrim] Allergy Unknown Verified 05/30/21 21:10 Physical Exam Vitals: Vital Signs Temp Pulse Resp BP Pulse Ox 07/20/21 09:20 97.5 F L 83 18 129/60 99 Intake and Output 07/19/21 07/20/21 07/20/21 22:59 06:59 14:59 Other: Weight 45.359 kg Physical Examinations : -Constitutiona : Cooperative , not in acute distress . -HEENT : nech : supple , no Lymphadenopathy , normal thyroid size . : eyes : no ptosis , no icterus, no photophobia . - neurologic : Cranial nerve II to XII intact , no focal neurological deffecit . -psychatric : alert , oriented X 3 , appropriate affect , intact judgment and insight . -Lymphatic : no Lymphadenopathy . - musculoskeltal : Lumber spine moter stegnth lower extremities ,thigh and legs 5/5 Right side , 5/5 Left side deep tendon reflexes : normal Knee Jerk , normal ankle Jerk lumber facet Loading Test =positive Right , positive Left Range of motion of the lumbar spine Flexion 30 degrees, extension 10 degrees strait leg raising test = positive at 30 degree left side and is negative on the right side Fabere test= positive Right , and positive LT . tenderness over the Sacroiliac joint on the Right , and Left sides Results Comments: X-ray of the lumbar spine multilevel lumbar degenerative disc disease multilevel lumbar spondylosis with lumbar facet arthropathy Assessment and Plan Plan: Assessment and plan=1-lumbar spondylosis with lumbar facet arthropathy. 2-lumbar degenerative disc disease. She had excellent pain relief after diagnostic medial branch block lumbar area x2 (done at [facility] ). She to be good candidate for RFA of the medial branch lumbar area at L4-5 ,and L5-S1 bilaterally Time with Patient: Greater than 30 PQRS Measure Charge Sheet Measure #130: Documentation of Current Meds in Medical Chart: Patient's medications documented in chart Measure #226: Tobacco Use: Screen & Cessation Intervention: Pt not a tobacco user Measure #111: Pneumonia Vaccination: Pneumococcal vaccine administered or p reviously received Measure #47: Advance Care Plan: Advance care planning discussed & documented, pt chose/unable to give Measure #412: Opioid Treatment Agreement: No documentation of signed opioid treatment agreement Measure #408: Opioid Therapy Follow-up Evaluation: Patient had NO f/u eval minimum every 3 months during opioid therapy Measure #317: Preventitive Care & Scrn High Bld Press & F/U: Normal blood pressure, f/u not required Measure #128: Body Mass Index (BMI) Screening & Follow-up: BMI documented BELOW normal parameters - f/u documented Measure #131: Pain Assessment & Follow-up: Pain positive & plan documented, Follow-up scheduled Measure #431: Unhealthy Alcohol Use Preventative Care & Scrn: Patient not identified as an unhealthy alcohol user Mode of Arrival: Ambulatory - Pain Location Lower Back Non-Pharmacological Interventions: Heat, Inactivity, Physical Therapy Pharmacological Interventions: Block, PRN Medication PQRS Narrative: Smoking Status Former smoker Blood Pressure 129/60 Pain Intensity [Lower Back] 5 Scale Used Numeric (1 - 10) Hx Alcohol Use (MH) No Home Medications: Ambulatory Orders Naproxen Sodium [Aleve] 220 mg PO DAILY PRN 06/07/18 Vitamin C/Biotin [Hair, Skin and Nails Chew] 1 tab PO DAILY 06/07/18 Vitavision 1 tab PO DAILY 06/07/18 Esomeprazole Magnesium [NexIUM] 40 mg PO DAILY 05/30/21 Levothyroxine Sodium [Levoxyl] 88 mcg PO DAILY 05/30/21 Magnesium 250 mg PO DAILY 05/30/21 Metoprolol Tartrate [Lopressor] 25 mg PO DAILY 05/30/21
== END ==
LOC: PNWHC3 09:10
PROVIDERS: ATTEND Specialist
DX: M47.816 Spondylosis without myelopathy or radiculopathy, lumbar region (principal); M51.36 Other intervertebral disc degeneration, lumbar region; F41.9 Anxiety disorder, unspecified; Z87.891 Personal history of nicotine dependence; Z88.2 Allergy status to sulfonamides; Z88.1 Allergy status to other antibiotic agents
CPT/HCPCS: 99211

== ENCOUNTER 2021-09-04 12:04 | Day surgery (SDC) | payer MEDICARE ==
[2021-08-31 15:33] VITALS: BMI 17.2
[~2021-09-04 12:04] MED LIST: LACTATED RINGERS 1,000 ML IV SCH
[2021-09-04 12:27] VITALS: TEMP 97.6
[2021-09-04] MEDS ORDERED: fentaNYL (PF) 50 MCG/ML 2 ML AMP ONE (12:46)
[2021-09-04] MEDS ORDERED: ROPIVACAINE 5MG/ML 20ML VIAL ONE (12:46)
[2021-09-04] MEDS ORDERED: MIDAZOLAM 2 MG/2 ML VIAL ONE (12:46)
[2021-09-04] MEDS ORDERED: methylPREDNISolone ACETATE 40 MG/ML 1 ML VIAL ONE (12:46)
--- NOTE | 2021-09-04 13:20 | P.PCN ---
Date of Procedure: 09/04/21 Procedure(s) Performed: PREOPERATIVE DIAGNOSIS: 1-Lumbar Spondylosis with Facet Arthropathy without myelopathy. 2- Lumber degenerative disc disease. POSTOPERATIVE DIAGNOSIS: 1- Lumbar Spondylosis with Facet Arthropathy without myelopathy. 2- Lumber degenerative disc disease. PROCEDURES : Bilateral Radiofrequency thermocoagulation, L3 , L4 , and L5 medial branch, with fluoroscopic guidance (fluoroscopy images available in the radiology department) ( to denervate the facet joint at bilateral L4-5 ,and L5-S1 levels ). ANESTHESIA: Monitered anesthesia care as per anesthesia department. EBL: Minimal PROCEDURE INDICATION: The patient with low back pain secondary to lumbar facet arthropathy who had more than 50% relief of her pain with previous diagnostic lumbar medial branch block with bupivacaine. PROCEDURE DESCRIPTION / TECHNIQUE: The patient was seen and identified in the preoperative area. Risks, benefits, complications, including but not limited to risk of infection ,bleeding , allergic reactions to the medications and no complete pain releife , and alternatives were discussed with the patient, the patient agreed to proceed with the procedure and signed the consent. IV was started. Vital signs remained stable throughout the procedure. Patient was taken to the OR and time out was completed. The patient was placed in the prone position on the procedure table. The lumber area was prepped and draped in the usual sterile fashion. . Vital signs were closely monitored during the procedure .IV sedation was used during the procedure to decrease patients anxiety. Using AP and then oblique fluoroscopy, the ``eye of the Kayw chapman c orresponding to the connection between the superior and transverse articular processes of right L3, L4, and L5 were identified, marked, and localized with 1% lidocaine. Subsequently, a 18 [id number] radiofrequency cannula with a 10- mm active tip was advanced guided by fluoroscopy to each of the``eyes of the Kyaw dog at right L3, L4, and L5. Each site then underwent sensory testing at 50 Hz and 0 to 1 volt and motor testing at 2.5 Hz and 0 to 3 volt with local stimulation, but no radicular symptoms down the legs. Thereafter each sites underwent radiofrequency thermocoagulation at 80 degrees celsius for 90 seconds after injecting 0.5 ml of PF Ropivacaine 1ml, then after the thermocoagulation done , 1 ml of the block solution containing Depo-Medrol 20 mg and 3 ml of Ropivacaine 0.5% was injected at the right L3 , L4 , and L5 , levels after negative aspiration of CSF and blood and with no paresthesias. Cannulas were retracted while injecting lidocaine 1% until the needle is out. The same procedure was repeated at the level of Left L3, L4, and L5 levels. At the end of the procedure, the skin was cleansed and bandages were applied. COMPLICATIONS: No acute complications. DISPOSITION / PLANS: The patient was placed in a supine position and transferred to the recovery area in a stable condition for observation and was discharged from the recovery room after meeting discharge criteria. Home discharge instructions given to the patient by the staff. The patient was reexamined prior to discharge. The patient will schedule a follow up in the clinic in 2-4 weeks.
[2021-09-04] MEDS ORDERED: IV FLUID CONTINUATION 1,000 ML IV ONE (13:28)
[2021-09-04 13:30] VITALS: RESP 18
--- NOTE | 2021-09-04 13:32 | FL ---
EXAMINATION TYPE: FL guided pain mgmt statistic DATE OF EXAM: 09/04/2021 HISTORY: Fluoroscopy time 14 seconds of fluoroscopy provided. IMPRESSION: 1. Fluoroscopy time.
[2021-09-04 13:47] VITALS: BP 139/77; PULSE 64
== END 2021-09-04 14:01 | disposition home or self-care (01) ==
LOC: ORPAIN 12:04
PROVIDERS: ATTEND Specialist
DX: M47.816 Spondylosis without myelopathy or radiculopathy, lumbar region (principal); M48.061 Spinal stenosis, lumbar region without neurogenic claudication
CPT/HCPCS: 64635; 64636; J2250; J1030; J3010; J2795

== ENCOUNTER → 2021-11-11 | Outpatient (CLI) | payer MEDICARE ==
[2021-11-11 13:23] VITALS: BP 144/63; PULSE 65; RESP 18; TEMP 97.6
--- NOTE | 2021-11-11 13:43 | P.PN ---
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 Patient states she experienced 90% pain relief status post procedure. Pain level waxes and wanes in intensity throughout the day based on activity but is currently 2 out of 10, achy, stiffness in the paraspinal muscles with radiating stiffness to the buttocks and left lower extremity. Pain is alleviated with medication, injections, heating pad use, physical therapy in the past, chiropractic treatments in the past, home daily stretching regimen, massage and rest. Interventional pain procedures completed include BL RFA L4-L5, L5-S1. Patient is currently on Aleve OTC Patient denies any side effects of the medication(s), denies excessive drowsiness or sleepiness, denies suicidal ideation and reports that the current pain medication is helping to control the pain and improve activities of daily living. Patient denies any motor or sensory deficits. Patient denies any fever or night sweats, denies any change in the bowel movements or urination. Physical Examination: -Constitutional: Cooperative. Not in acute distress . -HEENT: Neck is supple. No lymphadenopathy. No thyromegaly. Normal thyroid size. Eyes: No ptosis , no icterus, no photophobia. ENT: No auditory deficits. Normal oropharynx. No Thrush. - Respiratory: Chest clear to auscultations bilaterally. No wheezing. No rhonchi. - Cardiovascular: Regular rate and rhythm. S1 / S2 , no S3 , no S4. - Gastrointestinal: Abdomen soft no tenderness. Bowel sounds positive in all four quadrants. No organomegaly. - Genitourinary: Deferred. - Neurologic: Cranial nerve II to XII intact. No focal neurological deficits. - Psychatric: Alert & oriented x 3. Matching mood & appropriate affect. Judgment and insight intact. - Lymphatic: No Lymphadenopathy. - Musculoskeletal: Cervical spine: Muscle bulk/ tone/ strength in the bilateral upper extremities normal. Facet loading test cervical area positive. Lumbar spine: Motor bulk/ tone/ strength lower extremities , thigh and legs : 5/5 Deep tendon reflexes : Normal Knee Jerk. Normal Ankle Jerk . Vertebral body tenderness to palpation over L5 Lumbar Facet Loading Test positive Straight Leg Raise: positive at 30 degrees right side/ left side Gaenslen's Test positive Sacral spine : Severe tenderness over the Sacroiliac joint: right side / left side Range of motion: Flexion of the lumbar spine <60 degrees Range of motion: Extension of the lumbar spine <20 degrees Gaenslen's Test positive Dileep test: positive right side / left side Assessment and plan: Chronic low back pain secondary to lumbar degenerative disc disease , lumbar spondylosis with facet arthropathy without myelopathy Patient exhibited sufficient pain relief status post procedure. She may return to our clinic again on an as-needed basis. All patient questions answered MAPS reviewed and it was appropriate. I have spent 31 minutes on patient care today. Dr Duran was available by phone for the evaluation of this patient. The time was used to review the medical records including relevant urine studies and Prescription history (MAPs), review of the available imaging, evaluation and examination of the patient, coordination of care with the medical staff and if applicable referring physicians, as well as creation of the medical record Objective - Vital Signs Vital signs: Vital Signs Temp 97.6 F 11/11/21 13:19 Pulse 65 11/11/21 13:19 Resp 18 11/11/21 13:19 BP 144/63 11/11/21 13:19 Pulse Ox 99 11/11/21 13:19 Intake & Output 11/10/21 11/11/21 11/11/21 18:59 06:59 18:59 Weight 47.174 kg PQRS Measure Charge Sheet Mode of Arrival: Ambulatory - Pain Location Lower Back Non-Pharmacological Interventions: Chiropractic Treatment, Heat, Home Exercise, Physical Therapy, Position/Reposition, Stretching Pharmacological Interventions: Block, PRN Medication PQRS Narrative: Smoking Status Former smoker Blood Pressure 144/63 Pain Intensity [Lower Back] 2 Scale Used Numeric (1 - 10) Hx Alcohol Use (MH) No Home Medications: Ambulatory Orders Naproxen Sodium [Aleve] 220 mg PO DAILY PRN 06/07/18 Vitamin C/Biotin [Hair, Skin and Nails Chew] 1 tab PO DAILY 06/07/18 Vitavision 1 tab PO DAILY 06/07/18 Esomeprazole Magnesium [NexIUM] 40 mg PO DAILY 05/30/21 Levothyroxine Sodium [Levoxyl] 88 mcg PO MOTUWETHFRSA 10/09/21 Magnesium 250 mg PO DAILY 05/30/21 Metoprolol Tartrate [Lopressor] 50 mg PO QAM 05/30/21 Metoprolol Tartrate [Lopressor] 25 mg PO HS 08/31/21 Amoxic-Pot Clav 875-125Mg [Augmentin 875-125] 1 tab PO BID 09/18/21
== END ==
LOC: PNWHC3 12:57
PROVIDERS: ATTEND Specialist
DX: M51.36 Other intervertebral disc degeneration, lumbar region (principal); M47.816 Spondylosis without myelopathy or radiculopathy, lumbar region; G89.29 Other chronic pain; Z87.891 Personal history of nicotine dependence; Z88.1 Allergy status to other antibiotic agents; Z88.2 Allergy status to sulfonamides
CPT/HCPCS: 99211

== ENCOUNTER → 2022-08-09 | Outpatient (CLI) | payer MEDICARE ==
[2022-08-09 14:26] VITALS: BP 135/68; PULSE 70; RESP 18; TEMP 98
--- NOTE | 2022-08-09 15:02 | P.PAINPG ---
PQRS Measure Charge Sheet Comment: A 77 yr old female w at side with a history of severe and chronic low back pain secondary to lumbar DDD and spondylosis with facet arthropathy without myelopathy presents today for LBP evaluation. Pain level is at 7 /10 in intensity w provocation, constant, localized in the lower lumbar spine, dull/ achy in character w shooting towards the BLEs. Pain is provoked by rotation. Pain is alleviated with medications, heat, repositioning and rest. Interventional pain procedures completed include BL RFA L3-L5 Patient is currently on Aleve, Voltaren gel Patient denies any side effects of the medication(s), denies excessive drowsiness or sleepiness, denies suicidal ideation and reports that the current pain medication is helping to control the pain and improve activities of daily living. Patient denies any motor or sensory deficits. Patient denies any fever or night sweats, denies any change in the bowel movements or urination. Physical Examination: -Constitutional: Cooperative. Not in acute distress . - Neurologic: Cranial nerve II to XII intact. No focal neurological deficits. - Psychatric: Alert & oriented x 3. Matching mood & appropriate affect. Judgment and insight intact. - Musculoskeletal: Cervical spine: Muscle bulk/ tone/ strength in the bilateral upper extremities normal Vertebral body tenderness to palpation over Spurling test positive Distraction test positive Facet loading test positive Thoracic spine Muscle bulk / tone/ strength in the bilateral paraspinal muscles normal Vertebral body tender to palpation over Facet loading test positive Lumbar spine: Motor bulk/ tone/ strength lower extremities , thigh and legs : 5/5 Deep tendon reflexes : Normal Knee Jerk. Normal Ankle Jerk . Vertebral body tenderness to palpation over L4 Lumbar Facet Loading Test positive Straight Leg Raise: positive at 30 degrees right side/ left side Gaenslen's Test positive Sacral spine : Severe tenderness over the Sacroiliac joint: right side / left side Range of motion: Flexion of the lumbar spine <60 degrees Range of motion: Extension of the lumbar spine <20 degrees Gaenslen's Test positive Dileep test: positive right side / left side Thigh Thrust Test Sacral Thrust Test Assessment and plan: Chronic low back pain secondary to lumbar DDD, stenosis, spondylosis with facet arthropathy without myelopathy Recommendation of LISE L4-L5. May need a series of injections, up to 3 within a 6 mo period, for optimal pain relief. Risks, benefits of procedure discussed and pt verbalized understanding. Denies anticoagulant use or medical history of diabetes. All patient questions answered I have spent less than 30 minutes on patient care today. Dr Duran was available by phone for the evaluation of this patient. The time was used to review the medical records including relevant urine studies and Prescription history (MAPs), review of the available imaging, evaluation and examination of the patient, coordination of care with the medical staff and if applicable referring physicians, as well as creation of the medical record PQRS Narrative: Smoking Status Former smoker Hx Alcohol Use (MH) No Home Medications: Ambulatory Orders Naproxen Sodium [Aleve] 220 mg PO DAILY PRN 06/07/18 Vitamin C/Biotin [Hair, Skin and Nails Chew] 1 tab PO DAILY 06/07/18 Vitavision 1 tab PO DAILY 06/07/18 Esomeprazole Magnesium [NexIUM] 40 mg PO DAILY 05/30/21 Levothyroxine Sodium [Levoxyl] 88 mcg PO MOTUWETHFRSA 05/30/21 Magnesium 250 mg PO DAILY 05/30/21 Metoprolol Tartrate [Lopressor] 50 mg PO QAM 05/30/21 Metoprolol Tartrate [Lopressor] 25 mg PO HS 08/31/21 Amoxic-Pot Clav 875-125Mg [Augmentin 875-125] 1 tab PO BID 09/18/21 Controlled Substance Measures - Controlled Substance Measures Is patient prescribed a controlled substance at discharge?: No
== END ==
LOC: PNWHC3 13:54
PROVIDERS: ATTEND Specialist
DX: M47.816 Spondylosis without myelopathy or radiculopathy, lumbar region (principal); M51.36 Other intervertebral disc degeneration, lumbar region; M48.061 Spinal stenosis, lumbar region without neurogenic claudication; Z88.1 Allergy status to other antibiotic agents; Z88.2 Allergy status to sulfonamides; Z87.891 Personal history of nicotine dependence
CPT/HCPCS: 99211

== ENCOUNTER → 2022-11-23 | Outpatient (CLI) | payer MEDICARE ==
[~2022-11-23] MED LIST changes: -LACTATED RINGERS 1,000 ML IV SCH; +SODIUM CHLORIDE 0.9% 500 ML 500 ML in EMPTY BAG 1 BAG IV PRN; +ZOLEDRONIC ACID 5 MG in SODIUM CHLORIDE 0.9% 100 ML IV NR
[2022-11-23 11:28] VITALS: BP 164/80; PULSE 98; RESP 16; TEMP 97.6
== END ==
LOC: PROCWHC3 10:51
PROVIDERS: ATTEND Internal Medicine
DX: M81.0 Age-related osteoporosis without current pathological fracture (principal); Z88.1 Allergy status to other antibiotic agents; Z88.2 Allergy status to sulfonamides; Z88.8 Allergy status to other drugs, medicaments and biological substances; Z87.891 Personal history of nicotine dependence
CPT/HCPCS: 96365; J3489

== ENCOUNTER → 2025-02-11 | Outpatient (CLI) | payer MEDICARE ==
[2025-02-11 10:17] VITALS: BP 124/77; PULSE 89; RESP 18
--- NOTE | 2025-02-11 15:59 | P.PAINPG ---
Objective - Vital Signs Vital signs: Intake & Output 02/10/25 02/11/25 02/11/25 18:59 06:59 18:59 Weight 58.967 kg PQRS Measure Charge Sheet Comment: A 79 yr old female w at side with a history of severe and chronic LBP > 5 yrs secondary to radiculopathy, spondylosis with facet arthropathy without myelopathy presents today for evaluation. Pt underwent a BL RFA L3-L5 in Aug 2021 where she experienced 80% pain relief x 2-3 yrs s/p procedure. Pain level is provoked at 8 /10 in intensity, constant, predominantly axial, localized in the lower lumbar spine, dull/ achy in character without shooting pain. Pain is provoked by rotation. Pain is alleviated with physician guided stretches daily since Aug 2021, medications, heat, repositioning and rest. Oswestry axial pain score of 32. Interventional pain procedures completed include BL RFA L3-L5 (09/12) Patient is currently on Tyl, Voltaren gel Patient denies any side effects of the medication(s), denies excessive drowsiness or sleepiness, denies suicidal ideation and reports that the current pain medication is helping to control the pain and improve activities of daily living. Patient denies any motor or sensory deficits. Patient denies any fever or night sweats, denies any change in the bowel movements or urination. Physical Examination: -Constitutional: Cooperative. Not in acute distress . - Neurologic: Cranial nerve II to XII intact. No focal neurological deficits. - Psychatric: Alert & oriented x 3. Matching mood & appropriate affect. Judgment and insight intact. - Musculoskeletal: Cervical spine: Muscle bulk/ tone/ strength in the bilateral upper extremities normal Vertebral body tenderness to palpation over Spurling test positive Distraction test positive Facet loading test positive Thoracic spine Muscle bulk / tone/ strength in the bilateral paraspinal muscles normal Vertebral body tender to palpation over Facet loading test positive Lumbar spine: Motor bulk/ tone/ strength lower extremities , thigh and legs : 5/5 Deep tendon reflexes : Normal Knee Jerk. Normal Ankle Jerk . Vertebral body tenderness to palpation over L4 Lumbar Facet Loading Test positive BL L4-L5, L5-S1 Straight Leg Raise: positive at 30 degrees right side/ left side Gaenslen's Test positive Sacral spine : Severe tenderness over the Sacroiliac joint: right side / left side Range of motion: Flexion of the lumbar spine <60 degrees Range of motion: Extension of the lumbar spine <20 degrees Gaenslen's Test positive Dileep test: positive right side / left side Thigh Thrust Test Sacral Thrust Test Assessment and plan: Chronic low back pain secondary to radiculopathy, stenosis, spondylosis with facet arthropathy without myelopathy Recommendation of BL RFA L4-L5, L5-S1. Risks, benefits of procedure discussed and pt verbalized understanding. Protocol for discontinuation/ continuation of medications thu procedure discussed. Minimal anesthesia including Fentanyl and Versed if clincially indicated. All patient questions answered . I have spent less than 30 minutes on patient care today. Dr Duran was a vailable by phone for the evaluation of this patient. The time was used to review the medical records including relevant urine studies and Prescription history (MAPs), review of the available imaging, evaluation and examination of the patient, coordination of care with the medical staff and if applicable referring physicians, as well as creation of the medical record PQRS Narrative: Smoking Status Former smoker Hx Alcohol Use (MH) No Home Medications: Ambulatory Orders Naproxen Sodium [Aleve] 220 mg PO DAILY PRN 06/07/18 Vitamin C/Biotin [Hair, Skin and Nails Chew] 1 tab PO DAILY 06/07/18 Vitavision 1 tab PO DAILY 06/07/18 Esomeprazole Magnesium [NexIUM] 40 mg PO DAILY 05/30/21 Levothyroxine Sodium [Levoxyl] 88 mcg PO MOTUWETHFRSA 05/30/21 Magnesium 250 mg PO DAILY 05/30/21 Metoprolol Tartrate [Lopressor] 50 mg PO QAM 05/30/21 Metoprolol Tartrate [Lopressor] 25 mg PO HS 08/31/21 Amoxic-Pot Clav 875-125Mg [Augmentin 875-125] 1 tab PO BID 09/18/21 Controlled Substance Measures - Controlled Substance Measures Is patient prescribed a controlled substance at discharge?: No
== END ==
LOC: PNWHC3 09:58
PROVIDERS: ATTEND Specialist
DX: M47.26 Other spondylosis with radiculopathy, lumbar region (principal); M48.061 Spinal stenosis, lumbar region without neurogenic claudication; Z88.1 Allergy status to other antibiotic agents; Z88.2 Allergy status to sulfonamides; Z87.891 Personal history of nicotine dependence
CPT/HCPCS: 99212

== ENCOUNTER 2025-02-28 06:59 | Day surgery (SDC) | payer MEDICARE ==
[2025-02-28 07:29] VITALS: TEMP 98.4
[2025-02-28] MEDS: IV FLUID CONTINUATION 1,000 ML IV ONE ×2 (07:30→08:34)
[2025-02-28] MEDS: LIDOCAINE 1% (10MG/ML) FOR IV START INTRADERMA STA (07:30)
[2025-02-28] MEDS: LACTATED RINGERS 1,000 ML IV SCH (07:30)
[2025-02-28] MEDS ORDERED: ROPIVACAINE 5 MG/ML 30 ML VIAL ONE (07:54)
[2025-02-28] MEDS ORDERED: MIDAZOLAM 2 MG/2 ML VIAL ONE (07:54)
[2025-02-28] MEDS ORDERED: methylPREDNISolone ACETATE 40 MG/ML 1 ML VIAL ONE (07:54)
[2025-02-28] MEDS ORDERED: fentaNYL (PF) 50 MCG/ML 2 ML AMP ONE (07:54)
[2025-02-28] MEDS ORDERED: hydrALAZINE HCL 20 MG/ML 1 ML VIAL ONE (07:54)
--- NOTE | 2025-02-28 08:27 | P.PCN ---
Date of Procedure: 02/28/25 Procedure(s) Performed: PREOPERATIVE DIAGNOSIS: 1-Lumbar Spondylosis with Facet Arthropathy without myelopathy. 2- Lumber degenerative disc disease. POSTOPERATIVE DIAGNOSIS: 1- Lumbar Spondylosis with Facet Arthropathy without myelopathy. 2- Lumber degenerative disc disease. PROCEDURES : Bilateral Radiofrequency thermocoagulation, L3 , L4 , and L5 medial branch, with fluoroscopic guidance (fluoroscopy images available in the radiology department) ( to denervate the facet joint at bilateral L4-5 ,and L5-S1 levels ). ANESTHESIA: Sedation with Versed 1 mg and fentanyl 100 mcg. (Sedation start time 07:54 end time 0:822 ) EBL: Minimal PROCEDURE INDICATION: The patient with low back pain secondary to lumbar facet arthropathy who had more than 50% relief of her pain with previous diagnostic lumbar medial branch block with bupivacaine. PROCEDURE DESCRIPTION / TECHNIQUE: The patient was seen and identified in the preoperative area. Risks, benefits, complications, including but not limited to risk of infection ,bleeding , allergic reactions to the medications and no complete pain releife , and alternatives were discussed with the patient, the patient agreed to proceed with the procedure and signed the consent. IV was started. Vital signs remained stable throughout the procedure. Patient was taken to the OR and time out was completed. The patient was placed in the prone position on the procedure table. The lumber area was prepped and draped in the usual sterile fashion. . Vital signs were closely monitored during the procedure .IV sedation was used during the procedure to decrease patients anxiety. Using AP and then oblique fluoroscopy, the ``eye of the Kayw dog corresponding to the connection between the superior and transverse articular processes of right L3, L4, and L5 were identified, marked, and localized with 1% lidocaine. Subsequently, a [id number] (VENOM ) radiofrequency cannula with a 10-mm active tip was advanced guided by fluoroscopy to each of the``eyes of the Kyaw dog at right L3, L4, and L5. Each site then underwent sensory testing at 50 Hz and 0 to 1 volt and motor testing at 2.5 Hz and 0 to 3 volt with local stimulation, but no radicular symptoms down the legs. Thereafter each sites underwent radiofrequency thermocoagulation at 80 degrees celsius for 90 seconds after injecting 0.5 ml of PF Ropivacaine 1ml, then after the thermocoagulation done , 1 ml of the block solution containing Depo-Medrol 20 mg and 3 ml of Ropivacaine 0.5% was injected at the right L3 , L4 , and L5 , levels after negative aspiration of CSF and blood and with no paresthesias. Cannulas were retracted while injecting lidocaine 1% until the needle is out. The same procedure was repeated at the level of Left L3, L4, and L5 levels. At the end of the procedure, the skin was cleansed and bandages were applied. COMPLICATIONS: No acute complications. DISPOSITION / PLANS: The patient was placed in a supine position and transferred to the recovery area in a stable condition for observation and was discharged from the recovery room after meeting discharge criteria. Home discharge instructions given to the patient by the staff. The patient was reexamined prior to discharge. The patient will schedule a follow up in the clinic in 2-4 weeks.
[2025-02-28 08:51] VITALS: BP 161/71; PULSE 82; RESP 18
== END 2025-02-28 09:12 | disposition home or self-care (01) ==
LOC: ORPAIN 06:59
PROVIDERS: ATTEND Specialist
DX: M47.816 Spondylosis without myelopathy or radiculopathy, lumbar region (principal); M51.369 Other intervertebral disc degeneration, lumbar region without mention of lumbar back pain or lower extremity pain; Z88.1 Allergy status to other antibiotic agents; Z88.2 Allergy status to sulfonamides
CPT/HCPCS: 64635; 64636; J2250; J0360; J3010; J2795; J1010

== ENCOUNTER → 2025-03-21 | Outpatient (CLI) | payer MEDICARE ==
[2025-03-21 11:22] VITALS: BP 118/81; PULSE 77; RESP 16
--- NOTE | 2025-03-21 14:36 | P.PAINPG ---
Objective - Vital Signs Vital signs: Intake & Output 03/20/25 03/21/25 03/21/25 18:59 06:59 18:59 Weight 58.06 kg PQRS Measure Charge Sheet Comment: A 80 yr old female w at side with a history of severe and chronic LBP > 5 yrs secondary to radiculopathy, spondylosis with facet arthropathy without myelopathy presents today for evaluation s/p BL RFA L3-L5. Pt states she experienced 80% pain relief s/p procedure. Pain level is provoked at 8 /10 in intensity, constant, predominantly axial, localized in the lower lumbar spine, dull/ achy in character without shooting pain. Pain is provoked by rotation. Pain is alleviated with physician guided stretches daily since Aug 2021, medications, heat, repositioning and rest. Oswestry axial pain score of 32. Interventional pain procedures completed include BL RFA L3-L5 x2 (09/12, 02/28/25) Patient is currently on Tyl, Voltaren gel Patient denies any side effects of the medication(s), denies excessive drowsiness or sleepiness, denies suicidal ideation and reports that the current pain medication is helping to control the pain and improve activities of daily living. Patient denies any motor or sensory deficits. Patient denies any fever or night sweats, denies any change in the bowel movements or urination. Physical Examination: -Constitutional: Cooperative. Not in acute distress . - Neurologic: Cranial nerve II to XII intact. No focal neurological deficits. - Psychatric: Alert & oriented x 3. Matching mood & appropriate affect. Judgment and insight intact. - Musculoskeletal: Cervical spine: Muscle bulk/ tone/ strength in the bilateral upper extremities normal Vertebral body tenderness to palpation over Spurling test positive Distraction test positive Facet loading test positive Thoracic spine Muscle bulk / tone/ strength in the bilateral paraspinal muscles normal Vertebral body tender to palpation over Facet loading test positive Lumbar spine: Motor bulk/ tone/ strength lower extremities , thigh and legs : 5/5 Deep tendon reflexes : Normal Knee Jerk. Normal Ankle Jerk . Vertebral body tenderness to palpation over L4 Lumbar Facet Loading Test positive BL L4-L5, L5-S1 Straight Leg Raise: positive at 30 degrees right side/ left side Gaenslen's Test positive Sacral spine : Severe tenderness over the Sacroiliac joint: right side / left side Range of motion: Flexion of the lumbar spine <60 degrees Range of motion: Extension of the lumbar spine <20 degrees Gaenslen's Test positive Dileep test: positive right side / left side Thigh Thrust Test Sacral Thrust Test Assessment and plan: Chronic low back pain secondary to radiculopathy, stenosis, spondylosis with facet arthropathy without myelopathy Will manage residual pain and may RTC on an as needed basis. All patient questions answered . I have spent less than 30 minutes on patient care today. Dr Duran was available by phone for the evaluation of this patient. The time was used to review the medical records including relevant urine studies and Prescription history (MAPs), review of the available imaging, evaluation and examination of the patient, coordination of care with the medical staff and if applicable referring physicians, as well as creation of the medical record - Pain Location Bilateral Lower Back Non-Pharmacological Interventions: Heat, Home Exercise, Physical Therapy Pharmacological Interventions: Epidural, Topical Medication PQRS Narrative: Smoking Status Former smoker Hx Alcohol Use (MH) No Home Medications: Ambulatory Orders Levothyroxine Sodium [Levoxyl] 88 mcg PO DAILY 05/30/21 Metoprolol Tartrate [Lopressor] 50 mg PO QAM 05/30/21 Metoprolol Tartrate [Lopressor] 25 mg PO HS 08/31/21 Diclofenac Sodium Gel [Voltaren 1% Gel] 50 gm TOPICAL BID 30 Days #1 each 03/21/25 Controlled Substance Measures - Controlled Substance Measures Is patient prescribed a controlled substance at discharge?: No
== END ==
LOC: PNWHC3 10:57
PROVIDERS: ATTEND Specialist
DX: M47.26 Other spondylosis with radiculopathy, lumbar region (principal); Z88.1 Allergy status to other antibiotic agents; Z88.2 Allergy status to sulfonamides; Z87.891 Personal history of nicotine dependence
CPT/HCPCS: 99211